=== PATIENT | female | born 1935 | race Caucasian/White ===

== ENCOUNTER → 2016-05-12 | Outpatient (CLI) | payer MEDICARE ==
--- NOTE | 2016-05-12 12:05 | US ---
EXAMINATION TYPE: US pelvic complete DATE OF EXAM: 05/12/2016 9:11 AM COMPARISON: NONE CLINICAL HISTORY: R10.0 Abd Pain, N20.0 Kidney Stones. UTI's, h/o hysterectomy and single oophorectom y TECHNIQUE: TA only pelvic ultrasound. Date of LMP: 30+yrs ago EXAM MEASUREMENTS: Uterus: N/A Endometrial Stripe: N/A Right Ovary: N/A Left Ovary: N/A TECHNOLOGIST IMPRESSION: 1. Uterus: surgically absent 2. Endometrium: surgically absent 3. Right Ovary: not seen do to atrophy or surgically absent 4. Left Ovary: not seen do to atrophy or surgically absent 5. Bilateral Adnexa: wnl 6. Posterior cul-de-sac: wnl Uterus is surgically absent. No free fluid is seen in pelvis. Visualized portion of bladder is unrema rkable. Neither ovary is clearly seen. One ovary is noted surgically absent. No suspicious adnexal masses are identified. IMPRESSION: No significant finding is seen to account for patient's symptoms.
--- NOTE | 2016-05-12 13:10 | US ---
EXAMINATION TYPE: US abdomen complete DATE OF EXAM: 05/12/2016 9:33 AM COMPARISON: NONE CLINICAL HISTORY: R10.0 Abd Pain, N20.0 Kidney Stones. No pain per patient, recent UTI's EXAM MEASUREMENTS: Liver Length: 13.8cm Gallbladder Wall: N/A CBD: 0.8cm Spleen: 7.7cm Right Kidney: 8.3 x 3.9 x 4.5cm Left Kidney: 9.5 x 4.2 x 5.3cm TECHNOLOGIST IMPRESSION: Pancreas: wnl Liver: 0.9cm lateral left lobe cyst seen, intercostal imaging appears wnl Gallbladder: Surgically absent CBD: wnl Spleen: 0.9cm calcification seen Right Kidney: smaller in size Left Kidney: wnl Upper IVC: wnl Abd Aorta: wnl The liver is homogenous. A 1 cm simple appearing thin-walled cyst left hepatic dome is noted. The in trahepatic portion of the IVC and visualized abdominal aorta are within normal limits. Gallbladder is surgically absent. Common bile duct is unremarkable. The visualized portions of the pancreas are ho mogenous. The spleen is unremarkable. 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 Kidneys are symmetric and free of hydronephrosis. No renal lesions are seen on images saved. IMPRESSION: No significant finding is seen to account for patient's symptoms.
== END | disposition home or self-care (01) ==
LOC: RADUSWWP 09:00
PROVIDERS: ATTEND Internal Medicine Geriatric Medicine
DX: N20.0 Calculus of kidney (principal); R10.9 Unspecified abdominal pain
CPT/HCPCS: 76700; 76857

== ENCOUNTER → 2016-05-24 | Outpatient (CLI) | payer MEDICARE ==
--- NOTE | 2016-05-24 08:38 | BD ---
EXAMINATION TYPE: MG DEXA axial skeleton. DATE OF EXAM: 05/24/2016 7:53 AM COMPARISON: 12.27.2012 CLINICAL HISTORY: m79.0 known OSTEOPOROSIS Height: 59.5 Weight: 114 FRAX RISK QUESTIONS: Alcohol (3 or more units per day): NO Family History (Parent hip fracture): NO Glucocorticoids (More than 3mos): YES (Ex: prednisone, prednisolone, methylprednisolone, dexamethasone, and hydrocortisone). History of Fracture in Adulthood: YES Secondary Osteoporosis: NO 1. Type 1 Diabetes: NO 2. Hyperthyroidism: NO 3. Menopause before 45: YES 4. Malnutrition: NO 5. Chronic liver disease: NO Rheumatoid Arthritis: NO, OSTEO Current Tobacco Use: NO RISK FACTORS HISTORY OF: Hip Fracture RT HIP, 2016, AND PELVIS When: LAST YR History of Wrist Fracture: BOTH WRISTS When: >48 Surgery to Spine RT HIP...TOTAL HIP REPLACEMENT When: 2016 Other Fractures since Age 48: NOTHING OTHER THAN ABOVE STATED Family History of Osteoporosis: NONE KNOWN Smoke tobacco: NO Drink Alcohol: SOCIAL Active: BEST SHE CAN Diet low in dairy products/other sources of calcium: NO Postmenopausal woman: HYST AT AGE 38 YRS Lost more than 2 inches in height since high school: YES Frequent falls: FELL LAST YR IN THE HOSPITAL, [facility] Adrenal Insufficiency: NO MEDICATIONS: Prednisone or other steroids: PRO AIR NEEDED FOR ASTHMA, AND JUDI. NASAL SPRAY How Long: FOR YRS Osteoporosis Medications: PROLIA How Long: FOR YEARS Additional Medications: CALCIUM, VIT D, BP MEDS X2, Additional History: GI PROBLEMS, COLOSTOMY, SURGICAL COMPLICATIONS, BLOOD COTS EXAM MEASUREMENTS: Bone mineral densitometry was performed using the [employer] System. Bone mineral density as measured about the Lumbar spine is: ----- L1-L4(G/cm2): 1.242 T Score Values are as follows: ----- L1: -1.6 ----- L2: -0.7 ----- L3: 0.7 ----- L4: 3.0 ----- L1-L4: 0.5 Bone mineral density has: Increased 21.4% since study of: 12.27.2012 Bone mineral density about the L hip (g/cm2): 0.782 T Score values are as follows: -----L Neck: -2.2 -----L Intertrochanter: -1.7 Bone mineral density has: Decreased -3.2% since study of: 12.27.2012 FRAX %'S: 22.7% FOR MAJOR OSTEOPOROTIC FX.....AND 7.3% FOR A HIP FX: PROBABILITY OF FX I N 10 YRS TIME IMPRESSION: Osteopenia (T Score between -2.5 and -1 as noted by T score values There is slightly increased risk of fracture and the patient may be considered for treatment. Re-Screen 1-2 years. FOR HER LT HIP AND L1 ONLY OF SPINE NOTE: T-SCORE=SD OF THE YOUNG ADULT MEAN.
== END | disposition home or self-care (01) ==
LOC: RADBDWWP 07:15
PROVIDERS: ATTEND Internal Medicine Geriatric Medicine
DX: M85.852 Other specified disorders of bone density and structure, left thigh (principal); M85.88 Other specified disorders of bone density and structure, other site
CPT/HCPCS: 77080

== ENCOUNTER → 2016-09-10 | Outpatient (CLI) | payer MEDICARE ==
[~2016-09-10] MED LIST: DENOSUMAB 60 MG/ML 1 ML SYRINGE SQ ONE
[2016-09-10 13:27] VITALS: BP 188/79; PULSE 56; RESP 18; TEMP 97.5
== END | disposition home or self-care (01) ==
LOC: PROCWHC3 12:54
PROVIDERS: ATTEND Internal Medicine Geriatric Medicine
DX: M81.0 Age-related osteoporosis without current pathological fracture (principal)
CPT/HCPCS: 96372; J0897

== ENCOUNTER → 2017-03-18 | Outpatient (CLI) | payer MEDICARE | END | disposition home or self-care (01) | LOC: PROCWHC3 10:00 | PROVIDERS: ATTEND Internal Medicine Geriatric Medicine | DX: M81.0 Age-related osteoporosis without current pathological fracture (principal) | CPT/HCPCS: 96372 ==

== ENCOUNTER → 2017-08-15 | Outpatient (CLI) | payer MEDICARE ==
--- NOTE | 2017-08-15 16:42 | CT ---
EXAMINATION TYPE: CT facial bones wo con DATE OF EXAM: 08/15/2017 COMPARISON: NONE HISTORY: Facial pain and pressure and hoarseness CT DLP: 587.[address] of the paranasal sinuses was performed in the axial and coronal planes. Bone and soft tissue settings are submitted. The paranasal sinuses demonstrate normal aeration and development. Postoperative changes of partial b ilateral ethmoidectomy and medial maxillary antrectomy. The paranasal sinuses are free of mucosal thickening or air fluid level. The osteal meatal units are patent bilaterally. The nasal septum is midline. No bony destructive changes are seen within the field of view. IMPRESSION: Postoperative changes as noted. No evidence for acute or chronic sinusitis at this time.
== END | disposition home or self-care (01) ==
LOC: RADCTMAIN 16:13
PROVIDERS: ATTEND Internal Medicine Geriatric Medicine
DX: J01.00 Acute maxillary sinusitis, unspecified (principal); Z98.890 Other specified postprocedural states
CPT/HCPCS: 70486

== ENCOUNTER → 2017-08-24 | Outpatient (CLI) | payer MEDICARE ==
--- NOTE | 2017-08-24 14:53 | XR ---
EXAMINATION TYPE: XR chest 2V DATE OF EXAM: 08/24/2017 COMPARISON: NONE INDICATION: Cough TECHNIQUE: Frontal and lateral views of the chest are obtained. FINDINGS: The heart size is normal. The pulmonary vasculature is normal. Some minimal increased linear markings are within the right upper lobe at the periphery.. IMPRESSION: 1. Suggestion of minimal atelectasis or infiltrate in the right upper lobe.
== END | disposition home or self-care (01) ==
LOC: RADXRMAIN 11:46
PROVIDERS: ATTEND Otolaryngology
DX: R05 Cough (principal)
CPT/HCPCS: 71046

== ENCOUNTER 2017-12-22 10:10 | Day surgery (SDC) | payer MEDICARE ==
[2017-12-20 11:49] VITALS: BMI 22.4
[~2017-12-22 10:10] MED LIST changes: +ALBUTEROL NEB (CONC) 2.5 MG/0.5 ML INHALATION ONE; -DENOSUMAB 60 MG/ML 1 ML SYRINGE SQ ONE; +LACTATED RINGERS 1,000 ML IV ONE; +LACTATED RINGERS 1,000 ML IV SCH; +LIDOCAINE 2% (PF) 20 MG/ML 2 ML AMP INHALATION ONE; +LIDOCAINE VISCOUS 300 MG/15 ML CUP MUCOUS MEM NR
[2017-12-22 10:29] VITALS: TEMP 98.2
[2017-12-22] MEDS ORDERED: LIDOCAINE 1% 20 ML VIAL (10MG/ML) FOR IV START INTRADERMA ONE (10:42)
[2017-12-22] MEDS ORDERED: PROPOFOL 10 MG/ML 20 ML VIAL IV ONE (11:30)
[2017-12-22] MEDS ORDERED: GLYCOPYRROLATE 0.2 MG/ML 2 ML VIAL ONE (11:30)
[2017-12-22] MEDS ORDERED: MIDAZOLAM 2 MG/2 ML VIAL ONE (11:30)
[2017-12-22] MEDS ORDERED: LIDOCAINE 1% INJ 10MG/ML (20 ML MDV) ONE (11:30)
[2017-12-22] MEDS ORDERED: KETAMINE 10 MG/ML 20 ML VIAL ONE (11:30)
[2017-12-22] MEDS ORDERED: LIDOCAINE 2% (PF) 20 MG/ML 2 ML VIAL INHALATION ONE (11:38)
--- NOTE | 2017-12-22 12:06 | PCN ---
PROCEDURE NOTE PROCEDURE: Bronchoscopy airway examination, therapeutic lavage, BAL right middle lobe. PREOPERATIVE DIAGNOSIS: Chronic cough and asthmatic bronchitis. POSTOPERATIVE DIAGNOSIS: Chronic cough and asthmatic bronchitis. OPERATORS: Dr. Bentley and Dr. Ventura. There was informed consent. There was universal timeout. EPIC BEACON ANALYST provided the unconscious sedation and general anesthesia. After the patient was adequately sedated and being fully monitored, the bronchoscope was inserted through the right nostril. It passed through the right nasopharynx into the oropharynx. The hypopharynx was identified. The hypopharyngeal areas looked erythematous to me. There was no mass or lesion. There was no secretions. The vocal cords appeared normal themselves. The anterior commissure, true cords, false cords, arytenoids, piriform sinuses, vallecula, right and left and epiglottis all appeared relatively normal save for the fact that there was some erythema of these structures. Again, no mass or tumor. After topicalization, bronchoscope was pushed through the glottic opening into the trachea. The trachea was a bit collapsible. The trachea was a little friable and mucosa was erythematous and hyperemic. There were some secretions noted throughout the collapsible trachea. Tracheal jennifer was sharp. The left side including the left upper lobe proper and its two segments, the lingula and its two segments and the left lower lobe and its four segments. They all had similar findings of diffuse bronchitis with erythema and hyperemia of the airways. There was some mucosal friability. The patient did bleed easily. There were thick yellow secretions noted throughout. There was no dominant mass or tumor. Similar findings were on the right side. The right upper lobe and its three segments, the right middle lobe and its two segments, the right lower lobe and its five segments all had similar findings as to the left side. Again, no dominant mass or tumor. Thick secretions were noted throughout. They were suctioned without difficulty with the aid of saline. Next, the bronchoscope was wedged into the right middle lobe. The BAL took place. The patient tolerated the procedure well. There was no immediate complication. Afterwards, additional secretions were removed. Once completed, the bronchoscope was withdrawn. There was no immediate complications. SPECIMENS: Sent to the laboratory for analysis. MMODL / IJN: [id number] /
[2017-12-22 12:16] VITALS: BP 159/74
[2017-12-22 13:00] VITALS: PULSE 88; RESP 18
[2017-12-22 17:39] LABS: Appearance,BF Clear; Color,BF Colorless; Nucleated Cells, Body Fluid 40 /uL; RBC, Body Fluid 495 /uL
[2017-12-22 17:46] LABS: Mononuclear WBC,Body Fluid 19 %; Polynuclear WBC,Body Fluid 80 %; Total Cells Counted,Body Fluid 100
== END 2017-12-22 13:13 | disposition home or self-care (01) ==
LOC: ORWHC2ENDO 10:10
PROVIDERS: ATTEND Internal Medicine Critical Care Medicine
DX: J44.9 Chronic obstructive pulmonary disease, unspecified (principal); J32.9 Chronic sinusitis, unspecified; M19.90 Unspecified osteoarthritis, unspecified site; I10 Essential (primary) hypertension; K21.9 Gastro-esophageal reflux disease without esophagitis; Z96.659 Presence of unspecified artificial knee joint; Z79.51 Long term (current) use of inhaled steroids; Z79.899 Other long term (current) drug therapy; Z90.710 Acquired absence of both cervix and uterus; Z87.891 Personal history of nicotine dependence; Z86.73 Personal history of transient ischemic attack (TIA), and cerebral infarction without residual deficits
CPT/HCPCS: 94640; 87798 ×3; 87496; 87498; 87529 ×2; 88108; 88305; 89050; 87252; 87502; 87634; 87070; 87205; 87116; 87102; 87206; 31624; J2250; J2001 ×3; J2704

== ENCOUNTER → 2018-02-13 | Outpatient (CLI) | payer MEDICARE ==
--- NOTE | 2018-02-13 12:08 | FL ---
Modified barium swallow. HISTORY: Dysphagia. Modified barium swallow was performed with the department of speech pathology. The patient was prese nted with various consistencies of barium. There is no evidence for aspiration or penetration. Full report is to follow from the department of speech pathology. Impression: Normal study.
== END ==
LOC: RADFLMAIN 10:54
PROVIDERS: ATTEND Internal Medicine Geriatric Medicine
DX: Q40.1 Congenital hiatus hernia (principal)
CPT/HCPCS: 74230

== ENCOUNTER 2018-03-08 09:44 | Day surgery (SDC) | payer MEDICARE ==
[2018-03-06 09:42] VITALS: BMI 22.2
[~2018-03-08 09:44] MED LIST changes: -ALBUTEROL NEB (CONC) 2.5 MG/0.5 ML INHALATION ONE; -LACTATED RINGERS 1,000 ML IV ONE; +LIDOCAINE 1% 20 ML VIAL (10MG/ML) FOR IV START INTRADERMA PRN; -LIDOCAINE 2% (PF) 20 MG/ML 2 ML AMP INHALATION ONE; -LIDOCAINE VISCOUS 300 MG/15 ML CUP MUCOUS MEM NR
[2018-03-08 11:46] VITALS: TEMP 97.8
[2018-03-08] MEDS ORDERED: PROPOFOL 10 MG/ML 20 ML VIAL IV ONE (12:14)
--- NOTE | 2018-03-08 12:23 | P.PCN ---
Date of Procedure: 03/08/18 Procedure(s) Performed: BRIEF HISTORY: Patient is a 82-year-old, pleasant, male, scheduled for an upper endoscopy as a part of evaluation of epigastric pain for the last several months duration.. PROCEDURE PERFORMED: Esophagogastroduodenoscopy with biopsy. PREOPERATIVE DIAGNOSIS: Chronic epigastric pain. IV sedation per anesthesia. PROCEDURE: After informed consent was obtained, the patient was brought into the endoscopy unit. IV sedation was administered by Anesthesia under continuous monitoring. Initially the Olympus GIF-140 video endoscope was inserted into the mouth. Esophagus intubated without any difficulty. It was gradually advanced into the stomach and duodenum and carefully examined. The bulb and the second part of the duodenum appeared normal. The scope at this time was withdrawn to the stomach, adequately insufflated with air, and upon careful examination, mucosa of the antrum had linear erosions in the antrum consistent with erosive gastritis and biopsies were done from this area. The body, cardia and the fundus appeared normal. The scope was then withdrawn into the esophagus. The GE junction was located at 39 cm from the incisors. Small sliding Hiatal hernia noted. The esophagus appeared normal. There were no erosions or ulcerations seen. Biopsies were done from the distal esophagus and the patient tolerated the procedure well. IMPRESSION: 1. Linear erosions in the antrum of the stomach consistent with erosive gastritis. 2. Small sliding Hiatal hernia. RECOMMENDATIONS: The findings of this examination were discussed with the patient as well as a family. She was advised to follow with the biopsy results. she was advised to avoid NSAIDs and continue current medications.
[2018-03-08 12:37] VITALS: RESP 20
[2018-03-08 12:50] VITALS: BP 140/76; PULSE 84
== END 2018-03-08 13:03 | disposition home or self-care (01) ==
LOC: ORWHC2ENDO 09:44
PROVIDERS: ATTEND Internal Medicine Gastroenterology
DX: K29.50 Unspecified chronic gastritis without bleeding (principal); K44.9 Diaphragmatic hernia without obstruction or gangrene; G89.29 Other chronic pain; I10 Essential (primary) hypertension; J45.909 Unspecified asthma, uncomplicated; R32 Unspecified urinary incontinence; M19.90 Unspecified osteoarthritis, unspecified site; H35.30 Unspecified macular degeneration; K57.92 Diverticulitis of intestine, part unspecified, without perforation or abscess without bleeding; D64.9 Anemia, unspecified; Z79.51 Long term (current) use of inhaled steroids; Z79.899 Other long term (current) drug therapy; Z91.048 Other nonmedicinal substance allergy status; Z86.73 Personal history of transient ischemic attack (TIA), and cerebral infarction without residual deficits
CPT/HCPCS: 88305; 43239; J2704

== ENCOUNTER → 2018-07-20 | Outpatient (CLI) | payer MEDICARE ==
--- NOTE | 2018-07-21 09:06 | XR ---
EXAMINATION TYPE: XR chest 2V DATE OF EXAM: 07/20/2018 COMPARISON: 08/24/2017 INDICATION: Short of breath, cough TECHNIQUE: Frontal and lateral views of the chest are obtained. FINDINGS: The heart size is normal. The pulmonary vasculature is normal. The lungs are clear. There is some elevation which appears chronic of the right diaphragm. Some mild chronic changes in the periphery of the right upper lobe remain present. IMPRESSION: 1. No acute pulmonary process.
== END | disposition home or self-care (01) ==
LOC: RADXRMAIN 16:11
PROVIDERS: ATTEND Internal Medicine Clinical Cardiac Electrophysiology
DX: R06.02 Shortness of breath (principal); R05 Cough
CPT/HCPCS: 71046

== ENCOUNTER 2018-07-27 08:06 | Day surgery (SDC) | payer MEDICARE ==
[2018-07-25 11:11] VITALS: BMI 21.9
[~2018-07-27 08:06] MED LIST changes: +ALPRAZolam 0.25 MG TAB PO PRN; +ALPRAZolam 0.5 MG TAB PO PRN; +ASPIRIN 325 MG TAB PO ONE; +ATORVASTATIN 80 MG TAB PO ONE; -LACTATED RINGERS 1,000 ML IV SCH; -LIDOCAINE 1% 20 ML VIAL (10MG/ML) FOR IV START INTRADERMA PRN; +NITROGLYCERIN SL TABS 0.4 MG TAB SUBLINGUAL PRN; +SODIUM CHLORIDE 0.9% 1,000 ML in EMPTY BAG 1 BAG IV ONE
[2018-07-27 09:03] LABS: Basophils # (A) 0.1 k/uL (0-0.2); Basophils % (A) 1 %; Eosinophils # (A) 0.2 k/uL (0-0.7); Eosinophils % (A) 2 %; HCT 38.5 % (34.0-46.0); HGB 12.7 gm/dL (11.4-16.0); Lymphocytes # (A) 1.5 k/uL (1.0-4.8); Lymphocytes % (A) 13 %; MCH 30.6 pg (25.0-35.0); MCHC 33.1 g/dL (31.0-37.0); MCV 92.4 fL (80.0-100.0); Mean Platelet Volume 7.9; Monocytes % (A) 9 %; Neutrophils # (A) 8.3 k/uL (1.3-7.7); Neutrophils % (A) 73 %; Platelet Count 316 k/uL (150-450); RBC 4.16 m/uL (3.80-5.40); RDW 15.7 % (11.5-15.5); WBC 11.3 k/uL (3.8-10.6)
[2018-07-27] MEDS ORDERED: MIDAZOLAM (PF) 2 MG/2 ML VIAL IV ONE (12:38)
[2018-07-27] MEDS ORDERED: fentaNYL (PF) 50 MCG/ML 2 ML AMP IV ONE (12:38)
[2018-07-27] MEDS ORDERED: LIDOCAINE 1% INJ 10MG/ML (20 ML MDV) SQ ONE (12:39)
[2018-07-27] MEDS ORDERED: IOPAMIDOL-370 125ML BTL INJ ONE ×2 (12:52)
[2018-07-27] MEDS ORDERED: RX INFO: IV CONTRAST WAS GIVEN 1 EACH MISC MISCELLANE PRN (13:05)
[2018-07-27] MEDS: SODIUM CHLORIDE 0.9% 1,000 ML IV SCH (13:20)
[2018-07-27] MEDS ORDERED: ACETAMINOPHEN TAB 325 MG TAB PO PRN (16:42)
[2018-07-27] MEDS: hydrALAZINE HCL 50 MG TAB PO SCH (20:14)
[2018-07-27] MEDS ORDERED: METOPROLOL TARTRATE 50 MG TAB PO SCH (21:00)
[2018-07-27] MEDS ORDERED: LOSARTAN 25 MG TAB PO SCH (21:00)
[2018-07-27] MEDS ORDERED: ATORVASTATIN 20 MG TAB PO SCH (21:00)
[2018-07-27] MEDS ORDERED: ALPRAZolam 0.25 MG TAB PO SCH (21:00)
--- NOTE | 2018-07-27 21:34 | CC ---
CARDIAC CATHETERIZATION REPORT Mrs. Dee is an 83-year-old female who has been having some intermittent chest pressure and exertional shortness of breath with minimal activities. The patient's echocardiogram reveals normal left ventricular systolic function. The patient has a stage 3 chronic kidney disease. After fully explaining the potential benefits and risks, the patient was advised further evaluation with a cardiac catheterization to rule out any underlying significant coronary artery disease. DESCRIPTION OF PROCEDURE: The right groin was prepped and draped in the usual manner and the right femoral artery was entered using a micropuncture needle under ultrasound guidance and a #6-Australian sheath was placed in. Selective coronary angiography was then performed in multiple projections and the left ventricular pressures were obtained. Sheath was removed and good hemostasis was achieved with the use of Angio-Seal. The total contrast dye was 70 mL. Moderate sedation was used. Sedation time was 19 minutes. SELECTIVE CORONARY ANGIOGRAPHY: Left main coronary artery is normal and patent. LAD is a good caliber blood vessel and gives rise to a good size diagonal branch. The mid LAD after the origin of diagonal branch has mild atherosclerotic plaque with about 30% stenosis. Circumflex coronary artery is nondominant and is small. Right coronary artery is dominant in distribution, gives rise to good-sized PDA and PLV branch. Right coronary artery has a mild atheromatous abnormality without any obstructive disease. FINAL IMPRESSION: This study reveals mild nonobstructive coronary artery disease. Left ventricular end- diastolic pressure is 12-14 mmHg. RECOMMENDATIONS: Medical treatment. MMODL / IJN: [id number] /
[2018-07-27] MEDS: SYMBICORT 160-4.5 MCG INHALER INHALATION SCH (22:04)
[2018-07-28] MEDS: SODIUM CHLORIDE 0.9% 1,000 ML IV SCH (02:40)
[2018-07-28 06:55] LABS: Calcium 8.7 mg/dL (8.4-10.2); Potassium 3.4 mmol/L (3.5-5.1)
[2018-07-28] MEDS: SYMBICORT 160-4.5 MCG INHALER INHALATION SCH (07:44)
[2018-07-28] MEDS: hydrALAZINE HCL 50 MG TAB PO SCH (08:29)
[2018-07-28] MEDS ORDERED: FUROSEMIDE 40 MG TAB PO SCH (09:00)
[2018-07-28] MEDS ORDERED: CHLORTHALIDONE 25 MG TAB PO SCH (09:00)
[2018-07-28] MEDS ORDERED: DONEPEZIL 5 MG TAB PO SCH (09:00)
[2018-07-28] MEDS ORDERED: CITALOPRAM HYDROBROMIDE 10 MG TAB PO SCH (09:00)
[2018-07-28] MEDS ORDERED: amLODIPine 10 MG TAB PO SCH (09:00)
[2018-07-28] MEDS ORDERED: CALCIUM CARB-VIT D 500MG-200UN 1 EACH TAB PO SCH (09:00)
[2018-07-28] MEDS ORDERED: CHOLECALCIFEROL 1,000 UNIT TAB PO SCH (09:00)
[2018-07-28] MEDS ORDERED: ASPIRIN 81 MG PO SCH (09:00)
[2018-07-28 09:09] VITALS: BP 136/66; PULSE 57; RESP 16; TEMP 97.7
--- NOTE | 2018-07-28 11:19 | P.DS ---
Providers Attending physician: Kalyan Reynolds Primary care physician: [facility] Course: This is a pleasant 83-year-old female who is brought in electively for outpatient cardiac catheterization secondary to intermittent chest pressure and exertional shortness of breath. She underwent cardiac catheterization via the right femoral artery yesterday with Dr. Reynolds revealing mild nonobstructive coronary artery disease with an LVEDP of 12-14 mmHg. She was kept overnight on the observation unit for hydration. She denies chest pain, or shortness of breath overnight. Repeat laboratory data this morning reviewed, sodium 140, potassium 3.4, creatinine 1.11. Blood pressure 136/66 heart rate 57 afebrile maintaining oxygen saturation on room air. Hemodynamically stable for discharge home today. Follow-up in the office with Dr. Weinberg in one to 2 weeks. The office will call with appointment time. She has been advised to discontinue metoprolol and Imdur and continue all other medications as previously ordered. GENERAL: Well-appearing, well-nourished and in no acute distress. NECK: Supple without JVD or thyromegaly. LUNGS: Breath sounds clear to auscultation bilaterally. Respiration equal and unlabored. No wheezes, rales or rhonchi. HEART: Regular rate and rhythm without murmurs, rubs or gallops. S1 and S2 heard. EXTREMITIES: Normal range of motion, no edema. No clubbing or cyanosis. Peripheral pulses intact. Right groin is soft, nontender, no bleeding and no hematoma noted. Distal pulses strong and intact. ASSESSMENT Chest discomfort suggestive of angina. Catheterization with no evidence of obstructive CAD Hypertension Dyslipidemia PLAN Stable for discharge from a cardiac perspective. Discontinue lopressor and imdur. Follow up in the office with Dr. Hoover, the office will call you with appointment day and time. Nurse Practitioner note has been reviewed, I agree with a documented findings and plan of care. Patient was seen and examined. Patient Condition at Discharge: Stable Plan - Discharge Summary Discharge Rx Participant: Yes New Discharge Prescriptions: Continue amLODIPine BESYLATE [Amlodipine Besylate] 10 mg PO DAILY Donepezil [Aricept] 5 mg PO DAILY Cholecalciferol [Vitamin D3 (25 Mcg = 1000 Iu)] 1,000 unit PO DAILY Citalopram Hydrobromide [CeleXA] 10 mg PO DAILY ALPRAZolam [Xanax] 0.25 mg PO HS Propylene Glycol/Peg 400/Pf [Systane 0.3-0.4% Eye Drops] 1 dropper BOTH EYES DIRECTED PRN PRN Reason: Dry Eye(S) Budesonide-Formot 160-4.5 Mcg [Symbicort 160-4.5 Mcg Inhaler] 2 puff INHALATION BID Vit C/E/Zn/Coppr/Lutein/Zeaxan [Preservision Areds 2 Softgel] 1 each PO BID Carlos/D3/Mag11/Zinc/Gliding Pilot Instructor/Nigel/Bor [Caltrate 600+D Plus Tablet] 1 each PO DAILY hydrALAZINE HCL [Apresoline] 100 mg PO BID Chlorthalidone 25 mg PO DAILY Losartan Potassium [Cozaar] 25 mg PO HS Furosemide [Lasix] 40 mg PO DAILY Atorvastatin [Lipitor] 20 mg PO HS Aspirin 81 mg PO DAILY Discontinued Metoprolol Tartrate [Lopressor] 50 mg PO BID Discharge Medication List Cholecalciferol [Vitamin D3 (25 Mcg = 1000 Iu)] 1,000 unit PO DAILY 03/11/14 [ History] Donepezil [Aricept] 5 mg PO DAILY 03/11/14 [History] amLODIPine BESYLATE [Amlodipine Besylate] 10 mg PO DAILY 03/11/14 [History] ALPRAZolam [Xanax] 0.25 mg PO HS 09/10/16 [History] Citalopram Hydrobromide [CeleXA] 10 mg PO DAILY 09/10/16 [History] Propylene Glycol/Peg 400/Pf [Systane 0.3-0.4% Eye Drops] 1 dropper BOTH EYES DIRECTED PRN 09/10/16 [History] Budesonide-Formot 160-4.5 Mcg [Symbicort 160-4.5 Mcg Inhaler] 2 puff INHALATION BID 12/20/17 [History] Carlos/D3/Mag11/Zinc/Gliding Pilot Instructor/Nigel/Bor [Caltrate 600+D Plus Tablet] 1 each PO DAILY 12/20/17 [History] Vit C/E/Zn/Coppr/Lutein/Zeaxan [Preservision Areds 2 Softgel] 1 each PO BID 12/20/17 [History] Chlorthalidone 25 mg PO DAILY 03/06/18 [History] Losartan Potassium [Cozaar] 25 mg PO HS 03/06/18 [History] hydrALAZINE HCL [Apresoline] 100 mg PO BID 03/06/18 [History] Aspirin 81 mg PO DAILY 07/25/18 [History] Atorvastatin [Lipitor] 20 mg PO HS 07/25/18 [History] Furosemide [Lasix] 40 mg PO DAILY 07/25/18 [History] Follow up Appointment(s)/Referral(s): Abdelrahman Hoover MD [STAFF PHYSICIAN] - 2 Weeks (Follow-up with Tamiko Tejeda/Dr. Weinberg. office will call with appointment. Stop metoprolol. No Imdur. Continue all other medications including atorvastatin and aspirin and all her antihypertensive therapies from before. ) Patient Instructions/Handouts: *Surgery [facility] - After Heart Catheterization - [facility] Instructions Discharge Disposition: HOME SELF-CARE
== END 2018-07-28 12:05 | disposition home or self-care (01) ==
LOC: CATHCVL 08:06 → 1SOBS 12:54 → CATHCVL 07-28 12:05
PROVIDERS: ATTEND Internal Medicine Cardiovascular Disease
DX: I25.118 Atherosclerotic heart disease of native coronary artery with other forms of angina pectoris (principal); I10 Essential (primary) hypertension; Z87.891 Personal history of nicotine dependence; E78.5 Hyperlipidemia, unspecified; Z79.82 Long term (current) use of aspirin; Z79.51 Long term (current) use of inhaled steroids; Z79.899 Other long term (current) drug therapy
CPT/HCPCS: 94640 ×3; 93458; 80048; 85025; C1760; C1894; C1769 ×2; J2001; J3010; Q9967; J2250

== ENCOUNTER → 2018-09-05 | Outpatient (CLI) | payer MEDICARE ==
--- NOTE | 2018-09-05 13:59 | BD ---
EXAMINATION TYPE: Axial Bone Density DATE OF EXAM: 09/05/2018 COMPARISON: 05/24/2016 CLINICAL HISTORY: M 79.0 Height: 60 Weight: 118.2 FRAX RISK QUESTIONS: Alcohol (3 or more units per day): no Family History (Parent hip fracture): no Glucocorticoids (More than 3mos): no (Ex: prednisone, prednisolone, methylprednisolone, dexamethasone, and hydrocortisone). History of Fracture in Adulthood: yes Secondary Osteoporosis: 1. Type 1 Diabetes: no 2. Hyperthyroidism: no 3. Menopause before 45: yes 4. Malnutrition: no 5. Chronic liver disease: no Rheumatoid Arthritis: no Current Tobacco Use: no RISK FACTORS HISTORY OF: Hip Fracture (Right/Left): right hip When: 4 years ago History of Wrist Fracture: right 5 years ago/ left wrist apr 2018 Surgery to Spine/Hip(right/left)/Wrist (right/left): bilateral wrist/ right hip Family History of Osteoporosis: no Active: yes Diet low in dairy products/other sources of calcium: yes Postmenopausal woman: hysterectomy age 38 Lost more than 2 inches in height since high school: 1 1/2 inches MEDICATIONS: blood pressure, statins, Additional History: EXAM MEASUREMENTS: Bone mineral densitometry was performed using the [employer] System. Bone mineral density as measured about the Lumbar spine is: ----- L1-L4(G/cm2): 1.133 T Score Values are as follows: ----- L2: -1.3 ----- L3: -0.3 ----- L4: 1.0 ----- L1-L4: -0.4 Bone mineral density has: decreased -10.9 % since study of: 05.24.2016 Bone mineral density about the L hip (g/cm2): 0.714 T Score values are as follows: -----L Neck: -2.3 -----L Total: -2.1 Bone mineral density has: decreased -5.2 % since study of: 05.24.2016 IMPRESSION: Osteopenia (T Score between -2.5 and -1) with regards to the left hip. There is slightly increased risk of fracture and the patient may be considered for treatment. Re-Screen 2-5 years. NOTE: T-SCORE=SD OF THE YOUNG ADULT MEAN.
== END | disposition home or self-care (01) ==
LOC: RADBDWWP 10:40
PROVIDERS: ATTEND Internal Medicine Geriatric Medicine
DX: M85.852 Other specified disorders of bone density and structure, left thigh (principal); M81.0 Age-related osteoporosis without current pathological fracture
CPT/HCPCS: 77080

== ENCOUNTER → 2018-11-15 | Outpatient (CLI) | payer MEDICARE ==
--- NOTE | 2018-11-15 15:51 | CT ---
EXAMINATION TYPE: CT abdomen pelvis wo con DATE OF EXAM: 11/15/2018 COMPARISON: None HISTORY: abdominal pain CT DLP: 230.6 mGycm Examination of the solid and hollow viscera is limited given the lack of contrast. FINDINGS: LUNG BASES: No evidence for nodule. No evidence for infiltrate. LIVER/GB: The gallbladder is surgically absent. No space-occupying hepatic lesion. PANCREAS: No pancreatic mass identified. No inflammatory process seen. SPLEEN: No evidence for splenomegaly. No intrasplenic lesions seen. ADRENALS: No adrenal nodules identified. No evidence for thickening. KIDNEYS: No evidence for renal mass. Bilateral nephrolithiasis. No hydronephrosis. BOWEL: Appendix has a normal appearance. No evidence of bowel obstruction. No inflammatory process. Lymph nodes: No evidence for adenopathy greater than 1 cm. Abdominal aorta: Atheromatous changes seen. No evidence for aneurysm. Genital organs: No significant abnormality. Other: No significant abnormality. IMPRESSION: 1. Nonobstructive nephrolithiasis.
== END | disposition home or self-care (01) ==
LOC: RADCTMAIN 13:24
PROVIDERS: ATTEND Internal Medicine Geriatric Medicine
DX: N20.0 Calculus of kidney (principal)
CPT/HCPCS: 74176

== ENCOUNTER → 2018-12-13 | Outpatient (CLI) | payer MEDICARE ==
[~2018-12-13] MED LIST changes: -ALPRAZolam 0.25 MG TAB PO PRN; -ALPRAZolam 0.5 MG TAB PO PRN; -ASPIRIN 325 MG TAB PO ONE; -ATORVASTATIN 80 MG TAB PO ONE; +DENOSUMAB 60 MG/ML 1 ML SYRINGE SQ NR; -NITROGLYCERIN SL TABS 0.4 MG TAB SUBLINGUAL PRN; -SODIUM CHLORIDE 0.9% 1,000 ML in EMPTY BAG 1 BAG IV ONE
[2018-12-13 11:13] VITALS: BP 191/79; PULSE 65; RESP 16; TEMP 98.3
== END | disposition home or self-care (01) ==
LOC: PROCWHC3 10:55
PROVIDERS: ATTEND Internal Medicine Geriatric Medicine
DX: M81.0 Age-related osteoporosis without current pathological fracture (principal)
CPT/HCPCS: 96372; J0897

== ENCOUNTER → 2018-12-26 | Outpatient (CLI) | payer MEDICARE ==
--- NOTE | 2018-12-26 11:59 | XR ---
EXAMINATION TYPE: XR ribs LT w pa chest xray DATE OF EXAM: 12/26/2018 COMPARISON: 07/20/2018 HISTORY: Fall lateral lower rib pain TECHNIQUE: Left ribs are examined in 2 projections and supplemented with a frontal chest. FINDINGS: There is a lateral ninth rib fracture present. 10th rib fracture is evident on the oblique view. 11th rib may have a fracture but is not as clearly identified. Small pleural fluid collection i s present. Pleural effusion or hemothorax could be considered. IMPRESSION: 1. 9, 10 and 11th ribs fractures lateral left ribs. 2. No pneumothorax. 3. Fluid collection can be related to pleural effusion or hemothorax. A Yellow level critical message alert has been initiated for Ward Fraga MD via the [employer] Critical Results System on 12/26/2018 11:56 AM. This message alert has been sent to Ward Fraga MD vi a the preferences provided by the clinician for the receipt of Radiology Critical Findings. Message I D [id number].
== END | disposition home or self-care (01) ==
LOC: RADXRMAIN 11:19
PROVIDERS: ATTEND Internal Medicine Geriatric Medicine
DX: S22.42XA Multiple fractures of ribs, left side, initial encounter for closed fracture (principal)

== ENCOUNTER → 2019-10-02 | Outpatient (CLI) | payer MEDICARE ==
--- NOTE | 2019-10-03 11:37 | CT ---
EXAMINATION TYPE: CT abdomen pelvis w con DATE OF EXAM: 10/02/2019 COMPARISON: 11/15/2018 HISTORY: 84-year-old female Diverticulitis without abscess or bleeding TECHNIQUE: Contiguous axial scanning of the abdomen and pelvis following administration of 100 ml Iso jennifer 300 IV contrast. Delayed images through the kidneys and coronal/sagittal reconstructions perform ed. CT DLP: 376.6 mGycm Automated exposure control for dose reduction was used. FINDINGS: Mitral annular and coronary artery calcifications are present. Mild to moderate scattered a therosclerotic calcifications within the visualized thoracic aorta. Some interstitial scarring in the visualized lower lungs without pleural effusion. 1 cm indeterminate hypodense lesion left liver lobe is unchanged from prior suggesting a benign cyst. Status post cholecystectomy. Bile duct caliber of 1 cm normal distal tapering likely normal postchol ecystectomy change. Adrenal glands, left kidney, spleen, pancreas within normal limits. Redemonstrated extrarenal pelvis on the right. There may be minimal urothelial thickening among the v isualized upper third right ureter, for example, axial image 41. Some possible focal narrowing proxim al right ureter just beyond the UPJ, coronal image 38. Moderate atherosclerotic calcifications abdominal aorta and iliac arteries. No dilated small bowel, free fluid, or free air. No mesenteric or retroperitoneal lymphadenopathy. Oral contrast progressed to the rectum. There appears to be surgical material at the rectosigmoid corey ction from prior bowel resection and apparent end to side anastomosis. Some mild residual diverticular changes present here. No definite acute inflammation. No pelvic free fluid or evidence of pelvic lymphadenopathy. Low-lying cecum. Pelvic floor relaxation. Uterus surgically absent. Suspect visualization of a small right ovary. Left ovary not seen. There is a 2.7 cm left lateral bladder wall diverticulum redemonstrated. Mild to mod erate circumferential bladder wall thickening. Bones: Dynamic hip screw fixation on the right. Suture anchors along the pubic bones. Old left pubic rami fracture deformities. Moderate degenerative change in both hips. Vascular disease. Severe degene rative disc disease L3-L4 and L4-L5. Right paracentral disc protrusion at T10-T11. Transitional lumbo sacral segment with a sacralized L5. IMPRESSION: 1. PRIOR DISTAL COLON RESECTION WITH APPARENT END TO SIDE ANASTOMOSIS NEAR THE RECTOSIGMOID JUNCTION . SOME MILD RESIDUAL DIVERTICULAR CHANGES PRESENT HERE. NO CONVINCING EVIDENCE FOR ACUTE DIVERTICULIT IS. 2. MILD TO MODERATE CIRCUMFERENTIAL BLADDER WALL THICKENING. CORRELATE TO EXCLUDE CYSTITIS. REDEMONST RATED 2.7 CM LEFT LATERAL BLADDER WALL DIVERTICULUM. 3. THERE MAY BE SOME MILD UROTHELIAL THICKENING ALONG THE PROXIMAL THIRD RIGHT URETER THAT COULD RELA TE TO UTI. AGAIN, CLINICALLY CORRELATE. UNABLE TO EXCLUDE A FOCAL NONOBSTRUCTIVE STENOSIS ALONG THE P ROXIMAL RIGHT URETER JUST BELOW THE UPJ, CORONAL IMAGE 38.
== END | disposition home or self-care (01) ==
LOC: RADCTMAIN 13:08
PROVIDERS: ATTEND Internal Medicine Geriatric Medicine
DX: N32.3 Diverticulum of bladder (principal); K57.92 Diverticulitis of intestine, part unspecified, without perforation or abscess without bleeding; Z98.890 Other specified postprocedural states
CPT/HCPCS: 82565; 84520; 74177; 36415; Q9967

== ENCOUNTER → 2020-02-25 | Outpatient (CLI) | payer MEDICARE ==
[~2020-02-25] MED LIST changes: -DENOSUMAB 60 MG/ML 1 ML SYRINGE SQ NR; +DENOSUMAB 60 MG/ML 1 ML SYRINGE SQ ONE
[2020-02-25 13:13] VITALS: BP 172/69; PULSE 72; RESP 18; TEMP 97.9
== END | disposition home or self-care (01) ==
LOC: PROCWHC3 12:59
PROVIDERS: ATTEND Internal Medicine Geriatric Medicine
DX: M81.0 Age-related osteoporosis without current pathological fracture (principal)
CPT/HCPCS: 96372; J0897

== ENCOUNTER 2020-04-07 10:27 | Day surgery (SDC) | payer MEDICARE ==
[2020-04-01 11:41] VITALS: BMI 23.4
[~2020-04-07 10:27] MED LIST changes: -DENOSUMAB 60 MG/ML 1 ML SYRINGE SQ ONE; +LACTATED RINGERS 1,000 ML IV SCH; +SODIUM CHLORIDE 0.9% 1,000 ML IV SCH
[2020-04-07] MEDS ORDERED: SODIUM CHLORIDE 0.9% 500 ML 500 ML IV ONE (10:36)
[2020-04-07 10:53] VITALS: BP 185/102; PULSE 73; RESP 16; TEMP 98.4
[2020-04-07] MEDS ORDERED: LIDOCAINE 1% INJ 10MG/ML (20 ML MDV) ONE (12:38)
[2020-04-07] MEDS ORDERED: LIDOCAINE 1% INJ 10MG/ML (20 ML MDV) SQ ONE (12:47)
--- NOTE | 2020-04-07 13:35 | P.EPPROC ---
- EP Procedure Note Electrophysiology Procedure Note: Loop monitor implant Primary physicians: Accounting Recruiter: Dr. Hoover Indication: Recurrent palpitations Patient was brought to the EP lab in a fasting state. Written informed consent was obtained prior to the procedure. The left pectoral area was prepped and draped per protocol. Intravenous antibiotic was administered preoperatively. A subcutaneous Loop monitor was implanted successfully and the wound was closed per protocol. The device was programmed to detect significant frannie- arrhythmic and tachy-arrhythmic events, per protocol. Device and programming details: Programmed for detection of A. fib Patient underwent EP procedure under conscious sedation/moderate sedation, monit oring of the level of consciousness and physiologic parameters including but not limited to vital signs and oxygenation. Patient tolerated the procedure well without any acute complications. Start time: 1247 Stop time: 1254
--- NOTE | 2020-04-07 13:37 | P.PRLE ---
RE: Susy Dee Dear him on Susy underwent implantation of loop monitor for evaluation and management of recurrent palpitations despite beta blockers. No changes in medications at this time I will keep you posted if he detect any atrial fibrillation Thank you for entrusting me with the care of the patient Warm regards Sincerely Abdelrahman Hoover
== END 2020-04-07 13:32 | disposition home or self-care (01) ==
LOC: CATHEP 10:27
PROVIDERS: ATTEND Internal Medicine Clinical Cardiac Electrophysiology
DX: R00.2 Palpitations (principal); I49.5 Sick sinus syndrome; I08.0 Rheumatic disorders of both mitral and aortic valves; I47.2 Ventricular tachycardia; I47.1 Supraventricular tachycardia; I10 Essential (primary) hypertension; J44.9 Chronic obstructive pulmonary disease, unspecified; Z72.0 Tobacco use; Z79.82 Long term (current) use of aspirin; Z79.51 Long term (current) use of inhaled steroids; Z79.52 Long term (current) use of systemic steroids; Z79.899 Other long term (current) drug therapy
CPT/HCPCS: 33285; C1764; J0690; J2001

== ENCOUNTER → 2020-04-08 | Outpatient (CLI) | payer MEDICARE ==
[~2020-04-08] MED LIST changes: +FUROSEMIDE 10 MG/ML 2 ML VIAL IV ONE; -LACTATED RINGERS 1,000 ML IV SCH; -SODIUM CHLORIDE 0.9% 1,000 ML IV SCH
--- NOTE | 2020-04-09 12:41 | NM ---
EXAMINATION TYPE: NM lasix renogram DATE OF EXAM: 04/08/2020 COMPARISON: CT abdomen and pelvis October 02, 2019 HISTORY: Hydronephrosis unspecified. History of right ureter stent placed 3 months ago per patient. Following administration of 10.2 mCi Tc 99m MAG3 with 20mg Lasix. Immediate images post injection FINDINGS: Left: 44.7 %. Right: 55.3 %. Max renal flow left: 9 minutes. Max renal flow right: 7minutes. Satisfactory accumulation of radiotracer within both renal collecting systems. After the administrati on of Lasix, there is prompt excretion from both collecting systems. T 1/2 left: 29.5 minutes. T 1/2 right: 23.4 minutes. Dynamic arterial images show satisfactory blood flow to both kidneys with fairly symmetric cortical m edullary uptake and excretion identified. Slight asymmetric increased function to the right kidney ve rsus left kidney are within normal range. Normal excretion is present with satisfactory response afte r Lasix injection. IMPRESSION: As above. Bilateral function is thought within normal limits.
== END | disposition home or self-care (01) ==
LOC: RADNMMAIN 12:58
PROVIDERS: ATTEND Urology
DX: N13.30 Unspecified hydronephrosis (principal)
CPT/HCPCS: 78708; A9562

== ENCOUNTER → 2021-04-08 | Outpatient (CLI) | payer MEDICARE ==
[~2021-04-08] MED LIST changes: +DENOSUMAB 60 MG/ML 1 ML SYRINGE SQ NR; -FUROSEMIDE 10 MG/ML 2 ML VIAL IV ONE
[2021-04-08 13:55] VITALS: BP 160/69; PULSE 72; RESP 16; TEMP 97.8
== END ==
LOC: PROCWHC3 13:28
PROVIDERS: ATTEND Nurse Practitioner Gerontology
DX: M81.0 Age-related osteoporosis without current pathological fracture (principal); Z87.891 Personal history of nicotine dependence; Z91.09 Other allergy status, other than to drugs and biological substances
CPT/HCPCS: 96372; J0897

== ENCOUNTER → 2021-10-09 | Outpatient (CLI) | payer MEDICARE ==
[2021-10-09 13:21] VITALS: BP 162/61; PULSE 96; RESP 15; TEMP 98.2
== END ==
LOC: PROCWHC3 13:04
PROVIDERS: ATTEND Nurse Practitioner Gerontology
DX: M81.0 Age-related osteoporosis without current pathological fracture (principal); Z91.09 Other allergy status, other than to drugs and biological substances; Z87.891 Personal history of nicotine dependence
CPT/HCPCS: 96372; J0897

== ENCOUNTER 2022-03-30 17:41 | Inpatient (IN) | payer MEDICARE ==
--- NOTE | 2022-03-30 18:46 | ED ---
General Adult HPI - General Chief complaint: Fall Stated complaint: transfer from [facility]- fracture T3 Time Seen by Provider: 03/30/22 17:44 Source: patient, RN/MD (Dr. Miller), EMS, RN notes reviewed Mode of arrival: EMS Limitations: no limitations - History of Present Illness Initial comments: Patient is a pleasant 87-year-old female presenting to the emergency department with concern for T3 fracture. Patient was seen at [facility] and transferred. Patient did have a fall 5 days ago and has been having upper back discomfort since that time. Patient did have computed tomography scan done showing T3 fracture. Patient was transferred here. Patient is having some discomfort still. Patient did receive pain medication and states that did improve her symptoms. - Related Data Home Medications Medication Instructions Recorded Confirmed Cholecalciferol [Vitamin D3 (25 1,000 unit PO DAILY 03/11/14 10/09/21 Mcg = 1000 Iu)] amLODIPine BESYLATE [Amlodipine 10 mg PO DAILY 03/11/14 10/09/21 Besylate] ALPRAZolam [Xanax] 0.25 mg PO HS 09/10/16 10/09/21 Citalopram Hydrobromide [CeleXA] 10 mg PO DAILY 09/10/16 10/09/21 Carlos/D3/Mag11/Zinc/Gear Nicker/Nigel/Bor 1 each PO DAILY 12/20/17 10/09/21 [Caltrate 600+D Plus Tablet] Vit C/E/Zn/Coppr/Lutein/Zeaxan 1 each PO BID 12/20/17 10/09/21 [Preservision Areds 2 Softgel] Chlorthalidone 25 mg PO DAILY 03/06/18 10/09/21 Losartan Potassium [Cozaar] 75 mg PO HS 03/06/18 10/09/21 Aspirin 81 mg PO DAILY 07/25/18 10/09/21 Atorvastatin [Lipitor] 20 mg PO HS 07/25/18 10/09/21 Metoprolol Tartrate 25 mg PO DAILY 02/25/20 10/09/21 Mirabegron [Myrbetriq] 50 mg PO DAILY 02/25/20 10/09/21 Budesonide-Formot 160-4.5 Mcg 2 puff INHALATION BID 04/01/20 10/09/21 [Symbicort 160-4.5 Mcg Inhaler] Allergies Allergy/AdvReac Type Severity Reaction Status Date / Time perfume Allergy Unknown Dyspnea,COU Verified 04/08/21 13:45 FADIA Review of Systems ROS Statement: Those systems with pertinent positive or pertinent negative responses have been documented in the HPI. ROS Other: All systems not noted in ROS Statement are negative. Constitutional: Denies: fever Eyes: Denies: eye pain ENT: Denies: ear pain Respiratory: Denies: dyspnea Cardiovascular: Denies: chest pain Endocrine: Reports: fatigue Musculoskeletal: Reports: back pain Past Medical History Past Medical History: Asthma, CVA/TIA, Eye Disorder, GERD/Reflux, Hypertension, Osteoarthritis (OA), Pneumonia Additional Past Medical History / Comment(s): Osteoporosis, hx of TIA (2012), Stomach bleed - January 2014 (taken off coumadin). Hx of Diverticulitis, Chronic Asthma with Bronchitis, macular degeneration ronald, hx anemia, urinary leakage, c-diff 09/2017 History of Any Multi-Drug Resistant Organisms: None Reported Past Surgical History: Appendectomy, Bowel Resection, Cholecystectomy, Hysterectomy, Joint Replacement, Orthopedic Surgery, Tonsillectomy Additional Past Surgical History / Comment(s): sigmoid resection with colostomy and reversal. Left knee replacement, ronald ganglion cyst removal, R wrist plate (repair of fx), ORIF right Hip, ronald cataracts, left wrist ORIF 2018 Past Anesthesia/Blood Transfusion Reactions: No Reported Reaction Past Psychological History: Anxiety Smoking Status: Former smoker Past Alcohol Use History: Daily Additional Past Alcohol Use History / Comment(s): QUIT SMOKING 35 YEARS AGO., SMOKED 2 PPD. started smoking age 18. DRINKS 2 GLASSES OF WINE DAILY. Past Drug Use History: None Reported - Past Family History Mother Family Medical History: Cancer Additional Family Medical History / Comment(s): COLON CANCER Brother(s) Family Medical History: Cancer Additional Family Medical History / Comment(s): LUNG CANCER Sister(s) Family Medical History: Cancer Additional Family Medical History / Comment(s): BREAST CANCER General Exam Limitations: no limitations General appearance: alert, in no apparent distress Head exam: Present: normocephalic Eye exam: Present: normal appearance Neck exam: Present: normal inspection Respiratory exam: Present: normal lung sounds bilaterally Cardiovascular Exam: Present: regular rate, normal rhythm GI/Abdominal exam: Present: soft. Absent: tenderness Extremities exam: Present: normal inspection, full ROM Back exam: Present: tenderness (Mild tenderness mid thoracic) Neurological exam: Present: alert, other (Distally all extremities are neurovascularly intact.). Absent: motor sensory deficit Expanded Sensory exam: Upper Extremity Light Touch: Normal, Lower Extremity Light Touch: Normal Motor strength exam: RUE: 5, LUE: 5, RLE: 5, LLE: 5 Psychiatric exam: Present: normal affect, normal mood Skin exam: Present: normal color Course Vital Signs 03/30/22 03/30/22 17:45 17:51 Temperature 98.3 F Pulse Rate 66 Respiratory 18 Rate Blood Pressure 193/75 O2 Sat by Pulse 93 L Oximetry Medical Decision Making - Medical Decision Making Case was discussed with Dr. Jefferson who states patient should be admitted to medicine and they will consult. Dr. Joe hasn't paged for admission, covering for Dr. Melchor Was pt. sent in by a medical professional or institution? @ -Yes, [facility] Dr. miller Did you speak to anyone other than the patient for history? @ -Dr. Pineda did help provide history Did you review nursing and triage notes? @ -Yes and agree Were old charts reviewed? @ -Reviewed chart from [facility]. Differential Diagnosis? @ -Differential Weakness: Hypoglycemia, shock, sepsis, hyponatremia, anemia, infection, NC, ETOH, adverse medicine reaction, overdose, stroke, this is not meant to be an all-inclusive list. Including traumatic injury, thoracic injury, other spine injury EKG interpreted by me (3pts min.)? @ -[none] X-rays interpreted by me (1pt min.)? @ -[none] CT interpreted by me (1pt min.)? @ -[none] U/S interpreted by me (1pt. min.)? @ -[none] What testing was considered but not performed? (CT, X-rays, U/S, labs)? Why? @ n What meds were considered but not given? Why? @ -[none] Did you discuss the management of the patient with other professionals? @ -Case discussed with Dr. Jefferson. Dr. Joe has been paged. Did you reconcile home meds? @ -If available Was smoking cessation discussed for >3mins.? @ -[none] Was critical care preformed (if so, how long)? @ -[none] Were there social determinants of health that impacted care today? How? (Homelessness, low income, unemployed, alcoholism, drug addiction, transportation, low edu. Level, literacy, decrease access to med. care, residential, rehab)? @ -Question patient's ability to function at home Was there de-escalation of care discussed even if they declined? (Discuss DNR or withdrawal of care, Hospice)? @ -n What co-morbidities impacted this encounter? (DM, HTN, Smoking, COPD, CAD, Cancer, CVA, Hep., AIDS, mental health diagnosis, sleep apnea, morbid obesity)? @ -Previous T5 compression Was patient admitted / discharged? @ -Admitted Undiagnosed new problem with uncertain prognosis? @ - Diagnosis with uncertain prognosis Drug Therapy requiring intensive monitoring for toxicity (Heparin, Nitro, Insulin, Cardizem)? @ -[none] Were any procedures done? @ -[none] Diagnosis/symptom? @ -T3 fracture Acute, or Chronic, or Acute on Chronic? @ -Acute Uncomplicated (without systemic symptoms) or Complicated (systemic symptoms)? @ -Uncomplicated at this time Side effects of treatment? @ -[none] Exacerbation, Progression, or Severe Exacerbation] @ -[no] Poses a threat to life or bodily function? @ -Potential threat to neurological function Disposition Clinical Impression: T3 vertebral fracture Disposition: ADMITTED IP TO THIS HOSP Is patient prescribed a controlled substance at d/c from ED?: No Referrals: Ward Fraga MD [Primary Care Provider] - 1-2 days Time of Disposition: 18:50
[2022-03-30] MEDS ORDERED: NALOXONE 0.4 MG/ML 1 ML VIAL IV PRN (18:54)
[2022-03-30] MEDS ORDERED: MORPHINE SULFATE 2 MG/ML SYRINGE IVP STA (18:54)
[2022-03-30] MEDS ORDERED: MORPHINE SULFATE 4 MG/ML SYRINGE IV PRN (18:54)
--- NOTE | 2022-03-31 08:42 | P.HPIM ---
History of Present Illness H&P Date: 03/30/22 Chief Complaint: Fall/fracture T3 87-year-old female, history of hypertension, asthma, osteoarthritis, CVA/TIA, presenting to the emergency department at [facility] after fall and back pain. Patient was seen at [facility] and workup revealed a T3 fracture; patient was transferred to our facility for higher level of care. Patient did have a fall 5 days ago and has been having upper back discomfort since that time. Patient did have computed tomography scan done showing T3 fracture. Patient was transferred here. Patient is having some discomfort still. Patient did receive pain medication and states that did improve her symptoms. Review of Systems REVIEW OF SYSTEMS: CONSTITUTIONAL: No fever, no malaise, no fatigue. HEENT: No recent visual problems or hearing problems. Denied any sore throat. CARDIOVASCULAR: No chest pain, orthopnea, PND, no palpitations, no syncope. PULMONARY: No shortness of breath, no cough, no hemoptysis. GASTROINTESTINAL: No diarrhea, no nausea, no vomiting, no abdominal pain. NEUROLOGICAL: No headaches, no weakness, no numbness. HEMATOLOGICAL: Denies any bleeding or petechiae. GENITOURINARY: Denies any burning micturition, frequency, or urgency. MUSCULOSKELETAL/RHEUMATOLOGICAL: Denies any joint pain, swelling, or any muscle pain. ENDOCRINE: Denies any polyuria or polydipsia. The rest of the 14-point review of systems is negative. Past Medical History Past Medical History: Asthma, CVA/TIA, Eye Disorder, GERD/Reflux, Hypertension, Osteoarthritis (OA), Pneumonia Additional Past Medical History / Comment(s): Osteoporosis, hx of TIA (? 2012), Stomach bleed - January 2014 (taken off coumadin). Hx of Diverticulitis, Chronic Asthma with Bronchitis, macular degeneration ronald, hx anemia, urinary leakage, c-diff 09/2017 History of Any Multi-Drug Resistant Organisms: None Reported Past Surgical History: Appendectomy, Bowel Resection, Cholecystectomy, Hysterectomy, Joint Replacement, Orthopedic Surgery, Tonsillectomy Additional Past Surgical History / Comment(s): sigmoid resection with colostomy and reversal. Left knee replacement, ronald ganglion cyst removal, R wrist plate (repair of fx), ORIF right Hip, ronald cataracts, left wrist ORIF 2018 Past Anesthesia/Blood Transfusion Reactions: No Reported Reaction Past Psychological History: Anxiety Smoking Status: Former smoker Past Alcohol Use History: Daily Additional Past Alcohol Use History / Comment(s): QUIT SMOKING 35 YEARS AGO., SMOKED 2 PPD. started smoking age 18. DRINKS 2 GLASSES OF WINE DAILY. Past Drug Use History: None Reported - Past Family History Mother Family Medical History: Cancer Additional Family Medical History / Comment(s): COLON CANCER Brother(s) Family Medical History: Cancer Additional Family Medical History / Comment(s): LUNG CANCER Sister(s) Family Medical History: Cancer Additional Family Medical History / Comment(s): BREAST CANCER Medications and Allergies Home Medications Medication Instructions Recorded Confirmed Type ALPRAZolam [Xanax] 0.25 mg PO HS 09/10/16 03/30/22 History Citalopram Hydrobromide [CeleXA] 10 mg PO DAILY 09/10/16 03/30/22 History Vit C/E/Zn/Coppr/Lutein/Zeaxan 1 cap PO BID 12/20/17 03/30/22 History [Preservision Areds 2 Softgel] Atorvastatin [Lipitor] 20 mg PO HS 07/25/18 03/30/22 History Diphenoxylate HCl/Atropine 1 tab PO BID PRN 03/30/22 03/30/22 History [Lomotil 2.5-0.025 mg Tablet] Furosemide [Lasix] 40 mg PO DAILY 03/30/22 03/30/22 History Gabapentin [Neurontin] 100 mg PO TID 03/30/22 03/30/22 History Losartan Potassium 100 mg PO DAILY 03/30/22 03/30/22 History Metoprolol Succinate (ER) [Toprol 25 mg PO DAILY 03/30/22 03/30/22 History Xl] Multivitamin W/Calcium 1 tab PO DAILY 03/30/22 03/30/22 History amLODIPine [Norvasc] 10 mg PO DAILY 03/30/22 03/30/22 History predniSONE 5 mg PO DAILY 03/30/22 03/30/22 History Allergies Allergy/AdvReac Type Severity Reaction Status Date / Time perfume Allergy Unknown Dyspnea,COU Verified 03/30/22 19:35 GHING unknown pain med AdvReac Confusion Uncoded 03/30/22 19:35 Physical Exam Vitals: Vital Signs Temp Pulse Resp BP Pulse Ox 03/30/22 17:51 193/75 03/30/22 17:45 98.3 F 66 18 93 L Intake and Output 03/30/22 03/30/22 03/30/22 06:59 14:59 22:59 Other: Weight 56.699 kg PHYSICAL EXAMINATION: GENERAL: The patient is alert and oriented x3, not in any acute distress. Well developed, well nourished. HEENT: Pupils are round and equally reacting to light. EOMI. No scleral icterus. No conjunctival pallor. Normocephalic, atraumatic. No pharyngeal erythema. No thyromegaly. CARDIOVASCULAR: S1 and S2 present. No murmurs, rubs, or gallops. PULMONARY: Chest is clear to auscultation, no wheezing or crackles. ABDOMEN: Soft, nontender, nondistended, normoactive bowel sounds. No palpable organomegaly. MUSCULOSKELETAL: Mild tenderness mid thoracic spine. EXTREMITIES: No cyanosis, clubbing, or pedal edema. NEUROLOGICAL: Gross neurological examination did not reveal any focal deficits. SKIN: No rashes. Assessment and Plan Assessment: 1. Mechanical fall/debility; patient does have history of osteoarthritis and osteoporosis; we will consult PT/OT for evaluation and further treatment 2. Fracture T3 vertebra; patient does have history of previous T5 compression fracture likely related to history of osteoporosis 3. Hypertension; amlodipine 10 mg daily, losartan 100 mg daily and metoprolol 25 mg daily 4. Asthma; not in exacerbation; we will resume home inhaler therapy 5. History of osteoarthritis; Tylenol 650 mg every 6 hours when necessary 6. Gastroesophageal reflux disease; Protonix 40 mg daily 7. Depression/anxiety; Celexa 10 mg daily along with Xanax 0.5 daily at bedtime DVT prophylaxis; SCDs/subcu Lovenox CODE STATUS; full code
[2022-03-31] MEDS: METOPROLOL SUCCINATE (ER) 25 MG TAB.ER.24H PO SCH (09:00)
[2022-03-31] MEDS: LOSARTAN 50 MG TAB PO SCH (09:00)
[2022-03-31] MEDS: MULTIVITAMINS, THERA 1 EACH TAB PO SCH (09:00)
[2022-03-31] MEDS: amLODIPine 10 MG TAB PO SCH (09:00)
[2022-03-31] MEDS: GABAPENTIN 100 MG CAP PO SCH ×3 (09:00→20:03)
[2022-03-31] MEDS: CITALOPRAM HYDROBROMIDE 10 MG TAB PO SCH (09:00)
[2022-03-31] MEDS ORDERED: FUROSEMIDE 40 MG TAB PO SCH (09:00)
[2022-03-31] MEDS: predniSONE 5 MG TAB PO SCH (09:01)
[2022-03-31 10:00] LABS: Basophils # (A) 0.08 X 10*3/uL (0.00-0.10); Basophils % (A) 0.9 %; Eosinophils # (A) 0.66 X 10*3/uL (0.04-0.35); Eosinophils % (A) 7.2 %; HCT 41.4 % (37.2-46.3); HGB 12.5 g/dL (12.0-15.0); Immature Grans, Automated 0.4 %; Lymphocytes # (A) 0.93 X 10*3/uL (0.90-5.00); Lymphocytes % (A) 10.2 %; MCH 29.6 pg (27.0-32.0); MCHC 30.2 g/dL (32.0-37.0); MCV 98.1 fL (80.0-97.0); Mean Platelet Volume 10.4 fL (9.5-12.2); Monocytes # (A) 1.41 X 10*3/uL (0.20-1.00); Monocytes % (A) 15.5 %; NRBC Per 100 WBC 0 /100 WBCS (0.0-0.0); Neutrophils # (A) 5.99 X 10*3/uL (1.80-7.70); Neutrophils % (A) 65.8 %; Platelet Count 202 X 10*3/uL (140-440); RBC 4.22 X 10*6/uL (4.10-5.20); RDW 15.8 % (11.5-14.5); WBC 9.11 X 10*3/uL (4.50-10.00)
[2022-03-31 10:07] LABS: African American GFR (CKD) 38.5 (60.0-200.0); Albumin 3.7 g/dL (3.8-4.9); Albumin/Globulin Ratio 1.76 (1.60-3.17); Anion Gap 18.2 mmol/L (10.00-18.00); BUN/Creat Ratio 26.71 Ratio (12.00-20.00); Blood Urea Nitrogen 37.4 mg/dL (9.0-27.0); Calcium 9.7 mg/dL (8.7-10.3); Carbon Dioxide 18.8 mmol/L (20.0-27.5); Globulin 2.1 g/dL (1.6-3.3); Non-African American GFR(CKD) 33.2 (60.0-200.0); Potassium 5.5 mmol/L (3.5-5.5); Total Bilirubin 0.4 mg/dL (0.30-1.20); Total Protein 5.8 g/dL (6.2-8.2)
--- NOTE | 2022-03-31 10:55 | P.CNOR ---
History of Present Illness - HPI Consult date: 03/31/22 Consult reason: back pain History of present illness: History of Presenting Illness Patient is a pleasant 87-year-old female who was transferred from [facility] to our ER for evaluation of a T3 compression fracture. Reports state patient had a CT of the Thoracic performed at [facility], awaiting those films to be uploaded for review. Patient states she had a fall approximately 5 days ago and has had constant pain in her upper back. She denies hitting her head or LOC. Her pain in upper back is exacerbated with increased activity. She finds relief with pain medication and rest. She denies any numbness or tingling to upper extremities. Patient is known to our services. She is currently being worked up in our office for low back pain and right lower extremity radiculopathy. Patient was prescribed gabapentin. On 03/15/2022 she was referred to PM&R for chronic pain management. Patient does not want any surgical interventions. She has had a previous total left hip arthroplasty and a right hip IM nail, denies any other orthopedic history. She is currently resting on a stretcher in the ER, awaiting bed placement. She denies any fevers/chills, nausea/vomiting, or chest pain. Review of Systems Pertinent positives and negatives as discussed in HPI, a complete review of systems was performed and all other systems are negative. Physical Examination General: The patient is awake and alert, in no acute distress Skin: Skin is warm and dry with no obvious rashes or lesions. Hairy patches absent, no dorsal skin dimples, no cafe au lait spots, and no surgical incisions. Eye: Pupils are equal, round and reactive to light, extra-ocular movements are intact; there is normal conjunctiva bilaterally. Neck: The neck is supple, there is no tenderness and ROM intact. Cardiovascular: There is a regular rate and rhythm. No murmur, rub or gallop is appreciated. Respiratory: Lungs are clear to auscultation, respirations are non-labored, breath sounds are equal. Gastrointestinal: Soft, non-distended, non-tender abdomen. Back: There is no tenderness to palpation in the midline, paralumbar, parathoracic or buttocks region. There is no obvious deformity. Musculoskeletal: ROM limited secondary to pain and stiffness from surgical procedure. Shoulder abduction 5/5, elbow flexors 5/5, wrist dorsiflexors 5/5. finger abductor 5/5, actuarial director 5/5, hip flexor 4/5, knee flexor 4/5, ankle dorsiflexor 4/5, ankle plantarflexion 4/5 and extensor hallucis 4/5. Neurological: CN 2-12 intact. There are no obvious motor or sensory deficits. Movement and coordination equal and intact. Sensory exam to light touch intact C5-T1 and intact from L2-S1. Reflexes 2/4 in bilateral upper and lower extremities. Negative Hoffmans, babinski, and clonus signs. Psychiatric: Cooperative, appropriate mood & affect, normal judgment. Assessment and Plan Fall from standing T3 compression fracture Upper back pain -Appreciate consult and team management -CT of the Thoracic performed at [facility], awaiting those films to be uploaded for review -Continue with pain management -TLSO brace prescription has been placed in chart, patient to wear when up and about, may take break when in chair, remove for showers -PT/OT WBAT We will continue to follow I reviewed and discussed this case with my attending Dr. Otto, whom has reviewed this chart and films and is in agreement with assessment and plan of care as outlined above. I have personally seen and examined the patient, performed the documentation and the assessment and plan as written. Number of minutes spent on the visit: 15m. Past Medical History Past Medical History: Asthma, CVA/TIA, Eye Disorder, GERD/Reflux, Hypertension, Osteoarthritis (OA), Pneumonia Additional Past Medical History / Comment(s): Osteoporosis, hx of TIA (? 2012), Stomach bleed - January 2014 (taken off coumadin). Hx of Diverticulitis, C hronic Asthma with Bronchitis, macular degeneration ronald, hx anemia, urinary leakage, c-diff 09/2017 History of Any Multi-Drug Resistant Organisms: None Reported Past Surgical History: Appendectomy, Bowel Resection, Cholecystectomy, Hysterectomy, Joint Replacement, Orthopedic Surgery, Tonsillectomy Additional Past Surgical History / Comment(s): sigmoid resection with colostomy and reversal. Left knee replacement, ronald ganglion cyst removal, R wrist plate (repair of fx), ORIF right Hip, ronald cataracts, left wrist ORIF 2018 Past Anesthesia/Blood Transfusion Reactions: No Reported Reaction Past Psychological History: Anxiety Smoking Status: Former smoker Past Alcohol Use History: Daily Additional Past Alcohol Use History / Comment(s): QUIT SMOKING 35 YEARS AGO., SMOKED 2 PPD. started smoking age 18. DRINKS 2 GLASSES OF WINE DAILY. Past Drug Use History: None Reported - Past Family History Mother Family Medical History: Cancer Additional Family Medical History / Comment(s): COLON CANCER Brother(s) Family Medical History: Cancer Additional Family Medical History / Comment(s): LUNG CANCER Sister(s) Family Medical History: Cancer Additional Family Medical History / Comment(s): BREAST CANCER Medications and Allergies Home Medications Medication Instructions Recorded Confirmed Type ALPRAZolam [Xanax] 0.25 mg PO HS 09/10/16 03/30/22 History Citalopram Hydrobromide [CeleXA] 10 mg PO DAILY 09/10/16 03/30/22 History Vit C/E/Zn/Coppr/Lutein/Zeaxan 1 cap PO BID 12/20/17 03/30/22 History [Preservision Areds 2 Softgel] Atorvastatin [Lipitor] 20 mg PO HS 07/25/18 03/30/22 History Diphenoxylate HCl/Atropine 1 tab PO BID PRN 03/30/22 03/30/22 History [Lomotil 2.5-0.025 mg Tablet] Furosemide [Lasix] 40 mg PO DAILY 03/30/22 03/30/22 History Gabapentin [Neurontin] 100 mg PO TID 03/30/22 03/30/22 History Losartan Potassium 100 mg PO DAILY 03/30/22 03/30/22 History Metoprolol Succinate (ER) [Toprol 25 mg PO DAILY 03/30/22 03/30/22 History Xl] Multivitamin W/Calcium 1 tab PO DAILY 03/30/22 03/30/22 History amLODIPine [Norvasc] 10 mg PO DAILY 03/30/22 03/30/22 History predniSONE 5 mg PO DAILY 03/30/22 03/30/22 History Allergies Allergy/AdvReac Type Severity Reaction Status Date / Time perfume Allergy Unknown Dyspnea,COU Verified 03/30/22 19:35 GHING unknown pain med AdvReac Confusion Uncoded 03/30/22 19:35 Results - Labs Result Diagrams: 03/31/22 05:39 03/31/22 05:39
--- NOTE | 2022-03-31 14:52 | P.PN ---
Subjective Progress Note Date: 03/31/22 Principal diagnosis: Mechanical fall/debility Fracture T3 vertebra 87-year-old female, history of hypertension, asthma, osteoarthritis, CVA/TIA, presenting to the emergency department at [facility] after fall and back pain. Patient was seen at [facility] and workup revealed a T3 fracture; patient was transferred to our facility for higher level of care. Patient did have a fall 5 days ago and has been having upper back discomfort since that time. Patient did have computed tomography scan done showing T3 fracture. Patient was transferred here. Patient is having some discomfort still. Patient did receive pain medication and states that did improve her symptoms. Patient has been evaluated by orthopedic surgery -CT of the Thoracic performed at [facility], awaiting those films to be uploaded for review -Continue with pain management -TLSO brace prescription has been placed in chart, patient to wear when up and about, may take break when in chair, remove for showers -PT/OT WBAT Objective - Vital Signs Vital signs: Vital Signs Temp 97.0 F L 03/31/22 08:00 Pulse 66 03/31/22 08:00 Resp 16 03/31/22 08:00 BP 163/59 03/31/22 08:00 Pulse Ox 98 03/31/22 08:00 FiO2 Intake & Output 03/30/22 03/31/22 03/31/22 18:59 06:59 18:59 Intake Total 240 Balance 240 Weight 56.699 kg 56.699 kg Intake: Oral 240 Other: # Voids 1 - Exam GENERAL: The patient is alert and oriented x3, not in any acute distress. Well developed, well nourished. HEENT: Pupils are round and equally reacting to light. EOMI. No scleral icterus. No conjunctival pallor. Normocephalic, atraumatic. No pharyngeal erythema. No thyromegaly. CARDIOVASCULAR: S1 and S2 present. No murmurs, rubs, or gallops. PULMONARY: Chest is clear to auscultation, no wheezing or crackles. ABDOMEN: Soft, nontender, nondistended, normoactive bowel sounds. No palpable organomegaly. MUSCULOSKELETAL: Mild tenderness mid thoracic spine. EXTREMITIES: No cyanosis, clubbing, or pedal edema. NEUROLOGICAL: Gross neurological examination did not reveal any focal deficits. SKIN: No rashes. - Labs CBC & Chem 7: 01/04/23 05:39 03/31/22 05:39 Labs: Abnormal Lab Results - Last 24 Hours (Table) 03/31/22 03/31/22 Range/Units 05:39 05:39 MCV 98.1 H (80.0-97.0) fL MCHC 30.2 L (32.0-37.0) g/dL RDW 15.8 H (11.5-14.5) % Monocytes # 1.41 H (0.20-1.00) X 10*3/uL Eosinophils # 0.66 H (0.04-0.35) X 10*3/uL Carbon Dioxide 18.8 L (20.0-27.5) mmol/L Anion Gap 18.20 H (10.00-18.00) mmol/L BUN 37.4 H (9.0-27.0) mg/dL Est GFR (CKD-EPI)AfAm 38.5 L (60.0-200.0) Est GFR (CKD-EPI)NonAf 33.2 L (60.0-200.0) BUN/Creatinine Ratio 26.71 H (12.00-20.00) Ratio Glucose 69 L (70-110) mg/dL Total Protein 5.8 L (6.2-8.2) g/dL Albumin 3.7 L (3.8-4.9) g/dL Assessment and Plan Assessment: 1. Mechanical fall/debility; patient does have history of osteoarthritis and osteoporosis; we will consult PT/OT for evaluation and further treatment 2. Fracture T3 vertebra; patient does have history of previous T5 compression fracture likely related to history of osteoporosis 3. Hypertension; amlodipine 10 mg daily, losartan 100 mg daily and metoprolol 25 mg daily 4. Asthma; not in exacerbation; we will resume home inhaler therapy 5. History of osteoarthritis; Tylenol 650 mg every 6 hours when necessary 6. Gastroesophageal reflux disease; Protonix 40 mg daily 7. Depression/anxiety; Celexa 10 mg daily along with Xanax 0.5 daily at bedtime DVT prophylaxis; SCDs/subcu Lovenox CODE STATUS; full code
[2022-03-31] MEDS: ALPRAZolam 0.25 MG TAB PO SCH (20:03)
[2022-03-31] MEDS: ATORVASTATIN 20 MG TAB PO SCH (20:03)
[2022-04-01 07:26] LABS: Calcium 8.9 mg/dL (8.4-10.2); Potassium 4.1 mmol/L (3.5-5.1)
--- NOTE | 2022-04-01 08:06 | P.PN ---
Subjective Progress Note Date: 04/01/22 Principal diagnosis: Back pain Patient seen and examined this morning. She is currently resting in bed. Patient denies any numbness or tingling to bilateral upper or lower extremities. Patient states that she has been working with physical therapy and tolerating well. She states that she will be following up outpatient with PM&R. TLSO brace is at bedside. Patient has been afebrile, denies nausea/vomiting, or chest pain. Objective - Vital Signs Vital signs: Vital Signs Temp 97.7 F 04/01/22 02:00 Pulse 57 L 04/01/22 02:00 Resp 16 04/01/22 02:00 BP 147/70 04/01/22 02:00 Pulse Ox 98 04/01/22 02:00 FiO2 Intake & Output 03/31/22 03/31/22 04/01/22 06:59 18:59 06:59 Intake Total 600 Output Total 700 Balance -100 Weight 56.699 kg Intake: Oral 600 Output: Urine 700 Other: Voiding Method Indwelling Catheter # Voids 1 # Bowel Movements 0 - Exam General: The patient is awake and alert, in no acute distress Skin: Skin is warm and dry with no obvious rashes or lesions. Hairy patches absent, no dorsal skin dimples, no cafe au lait spots, and no surgical incisions. Eye: Pupils are equal, round and reactive to light, extra-ocular movements are intact; there is normal conjunctiva bilaterally. Neck: The neck is supple, there is no tenderness and ROM intact. Cardiovascular: There is a regular rate and rhythm. No murmur, rub or gallop is appreciated. Respiratory: Lungs are clear to auscultation, respirations are non-labored, breath sounds are equal. Gastrointestinal: Soft, non-distended, non-tender abdomen. Back: There is no tenderness to palpation in the midline, paralumbar, parathoracic or buttocks region. There is no obvious deformity. Musculoskeletal: ROM limited secondary to pain and stiffness from surgical procedure. Shoulder abduction 5/5, elbow flexors 5/5, wrist dorsiflexors 5/5. finger abductor 5/5, bag valver 5/5, hip flexor 4/5, knee flexor 4/5, ankle dorsiflexor 4/5, ankle plantarflexion 4/5 and extensor hallucis 4/5. Neurological: CN 2-12 intact. There are no obvious motor or sensory deficits. Movement and coordination equal and intact. Sensory exam to light touch intact C5-T1 and intact from L2-S1. Reflexes 2/4 in bilateral upper and lower extremities. Negative Hoffmans, babinski, and clonus signs. Psychiatric: Cooperative, appropriate mood & affect, normal judgment. - Labs CBC & Chem 7: 03/31/22 05:39 04/01/22 06:34 Labs: Abnormal Lab Results - Last 24 Hours (Table) 03/31/22 03/31/22 Range/Units 05:39 05:39 MCV 98.1 H (80.0-97.0) fL MCHC 30.2 L (32.0-37.0) g/dL RDW 15.8 H (11.5-14.5) % Monocytes # 1.41 H (0.20-1.00) X 10*3/uL Eosinophils # 0.66 H (0.04-0.35) X 10*3/uL Carbon Dioxide 18.8 L (20.0-27.5) mmol/L Anion Gap 18.20 H (10.00-18.00) mmol/L BUN 37.4 H (9.0-27.0) mg/dL Est GFR (CKD-EPI)AfAm 38.5 L (60.0-200.0) Est GFR (CKD-EPI)NonAf 33.2 L (60.0-200.0) BUN/Creatinine Ratio 26.71 H (12.00-20.00) Ratio Glucose 69 L (70-110) mg/dL Total Protein 5.8 L (6.2-8.2) g/dL Albumin 3.7 L (3.8-4.9) g/dL Assessment and Plan Assessment: Fall from standing T3 compression fracture Upper back pain Plan: Plan: -Appreciate sediment remediation consultant and team management. -Activity: Ambulate QID, OOB all meals, up and about, limit lifting bending twisting to less than 5 lbs. Use walker or cane if needed for stability. -Daily PT/OT, increase ambulation strength and balance. - TLSO Brace when up and about, not needed in bed or chair -Pain control: Adequate at this time -Encourage IS 10x/hr -Dispo: Patient is cleared from orthopedic standpoint for discharge Our services are signing off at this time, please feel free to reach out with any questions or concerns. Patient has an appointment to follow up with our office, if she needs to be seen sooner or she may call and reschedule. *I reviewed and discussed this case with my attending Dr. Otto, whom has reviewed this chart and films and is in agreement with assessment and plan of care as outlined above. I have personally seen and examined the patient, performed the documentation and the assessment and plan as written. Number of minutes spent on the visit: 15m
--- NOTE | 2022-04-01 08:44 | P.PN ---
Subjective 87-year-old female, history of hypertension, asthma, osteoarthritis, CVA/TIA, presenting to the emergency department at [facility] after fall and back pain. Patient was seen at [facility] and workup revealed a T3 fracture; patient was transferred to our facility for higher level of care. Patient did have a fall 5 days ago and has been having upper back discomfort since that time. Patient did have computed tomography scan done showing T3 fracture. Patient was transferred here. Patient is having some discomfort still. Patient did receive pain medication and states that did improve her symptoms. Patient has been evaluated by orthopedic surgery -CT of the Thoracic performed at [facility], awaiting those films to be uploaded for review -Continue with pain management -TLSO brace prescription has been placed in chart, patient to wear when up and about, may take break when in chair, remove for showers -PT/OT WBAT 04/01/2022 This is a pleasant 87 years old female who presents with back pain after she fell home 5 days ago and found to have T3 fracture, patient was transferred from [facility], orthopedic team recommended TLSO brace which is at bedside, patient wear about and willing to use it when she is up out of bed as she was informed. Also her pain was controlled. She still feels generally weak, PT/OT is consulted Her creatinine went up 1.4 up to 1.6, hold oral Lasix and consult sueding and buffing machine operator On admission she has some irritation 311, Fisher catheter was placed despite this creatinine went up, we will discontinue Fisher catheter and keep checking bladder scan 48 hours Other than that she is awake alert, lying in bed denies any weakness or numbness or dizziness. CAT scan of the abdomen and pelvis at [facility], no dilated ducts fibrotic changes, atelectasis to right lung base Also patient on prednisone 5 mg and she does not know why. Patient says she is not on home oxygen We will check chest x-ray Objective - Vital Signs Vital signs: Vital Signs Temp 97.7 F 04/01/22 02:00 Pulse 55 L 04/01/22 08:03 Resp 16 04/01/22 02:00 BP 134/64 04/01/22 08:03 Pulse Ox 94 L 04/01/22 08:03 FiO2 Intake & Output 01/04/23 01/05/23 01/05/23 18:59 06:59 18:59 Intake Total 600 Output Total 700 175 Balance -100 -175 Intake: Oral 600 Output: Urine 700 175 Uretheral (Fisher) 175 Other: Voiding Method Indwelling Catheter # Bowel Movements 0 - Exam -GENERAL: The patient is alert and oriented x3, not in any acute distress. Well developed, well nourished. Generally weak HEENT: Pupils are round and equally reacting to light. EOMI. No scleral icterus. No conjunctival pallor. Normocephalic, atraumatic. No pharyngeal erythema. No thyromegaly. CARDIOVASCULAR: S1 and S2 present. No murmurs, rubs, or gallops. PULMONARY: Chest is clear to auscultation, no wheezing or crackles. -ABDOMEN: Soft, nontender, nondistended, normoactive bowel sounds. No palpable organomegaly. Fisher catheter in place MUSCULOSKELETAL: No joint swelling or deformity. EXTREMITIES: No cyanosis, clubbing, or pedal edema. NEUROLOGICAL: Gross neurological examination did not reveal any focal deficits. SKIN: No rashes. no petechiae. - Labs CBC & Chem 7: 03/31/22 05:39 04/01/22 06:34 Labs: Abnormal Lab Results - Last 24 Hours (Table) 03/31/22 03/31/22 04/01/22 Range/Units 05:39 05:39 06:34 MCV 98.1 H (80.0-97.0) fL MCHC 30.2 L (32.0-37.0) g/dL RDW 15.8 H (11.5-14.5) % Monocytes # 1.41 H (0.20-1.00) X 10*3/uL Eosinophils # 0.66 H (0.04-0.35) X 10*3/uL Sodium 134 L (137-145) mmol/L Carbon Dioxide 18.8 L (20.0-27.5) mmol/L Anion Gap 18.20 H (10.00-18.00) mmol/L BUN 37.4 H 49 H (9.0-27.0) mg/dL Creatinine 1.60 H (0.52-1.04) mg/dL Est GFR (CKD-EPI)AfAm 38.5 L (60.0-200.0) Est GFR (CKD-EPI)NonAf 33.2 L (60.0-200.0) BUN/Creatinine Ratio 26.71 H (12.00-20.00) Ratio Glucose 69 L (70-110) mg/dL Total Protein 5.8 L (6.2-8.2) g/dL Albumin 3.7 L (3.8-4.9) g/dL Assessment and Plan Assessment: 1. Mechanical fall/debility; patient does have history of osteoarthritis and osteoporosis; we will consult PT/OT for evaluation and further treatment. Check chest x-ray for follow-up 2. Fracture T3 vertebra; patient does have history of previous T5 compression fracture likely related to history of osteoporosis. Orthopedic team signed off the case. TLSO brace at bedside 3. Acute kidney injury, hold Lasix, consult sueding and buffing machine operator. Discontinue Fisher catheter check bladder scan 4. Asthma; not in exacerbation; we will resume home inhaler therapy 5. History of osteoarthritis; Tylenol 650 mg every 6 hours when necessary 6. Gastroesophageal reflux disease; Protonix 40 mg daily 7. Depression/anxiety; Celexa 10 mg daily along with Xanax 0.5 daily at bedtime 8. Hypertension; amlodipine 10 mg daily, losartan 100 mg daily and metoprolol 25 mg daily DVT prophylaxis; SCDs/subcu Lovenox CODE STATUS; full code
--- NOTE | 2022-04-01 09:48 | XR ---
EXAMINATION TYPE: XR chest 1V DATE OF EXAM: 04/01/2022 COMPARISON: 12/26/2018 HISTORY: 87-year-old female weakness TECHNIQUE: Single frontal view of the chest is obtained. FINDINGS: Loop recorder device projects over the left side of the heart. Scattered calcifications throughout th e aorta. Low lung volumes. Patchy peripheral interstitial opacities are noted. No sizable pleural eff usion. Heart borderline enlarged. IMPRESSION: Borderline cardiomegaly and hypoventilatory changes. Patchy peripheral interstitial densities are not ed. Correlate for interstitial pneumonitis or atypical/COVID pneumonia.
[2022-04-01] MEDS: LOSARTAN 50 MG TAB PO SCH (10:31)
[2022-04-01] MEDS: amLODIPine 10 MG TAB PO SCH (10:31)
[2022-04-01] MEDS: MULTIVITAMINS, THERA 1 EACH TAB PO SCH (10:31)
[2022-04-01] MEDS: CITALOPRAM HYDROBROMIDE 10 MG TAB PO SCH (10:31)
[2022-04-01] MEDS: GABAPENTIN 100 MG CAP PO SCH ×3 (10:31→21:29)
[2022-04-01] MEDS: METOPROLOL SUCCINATE (ER) 25 MG TAB.ER.24H PO SCH (10:31)
[2022-04-01] MEDS: predniSONE 5 MG TAB PO SCH (10:32)
--- NOTE | 2022-04-01 13:26 | P.NPCON ---
History of Present Illness - Reason for Consult acute renal failure - History of Present Illness Patient is an 87-year-old female with history of hypertension, asthma, osteoarthritis, CVA/TIA. Patient initially presented to [facility] after a fall. She was found to have T3 fracture and was subsequently transferred here for orthopedic evaluation. Serum creatinine was 1.4 yesterday and it is up to 1.6 today. Patient has not voided much today. Blood pressure is not low Maintained on Cozaar. No history of use of NSAIDs. No IV fluids currently however patient's states that she received a lot of IV fluids at the other facility. Review of Systems As per HPI, other systems negative Past Medical History Past Medical History: Asthma, CVA/TIA, Eye Disorder, GERD/Reflux, Hypertension, Osteoarthritis (OA), Pneumonia Additional Past Medical History / Comment(s): Osteoporosis, hx of TIA (? 2012), Stomach bleed - January 2014 (taken off coumadin). Hx of Diverticulitis, Chronic Asthma with Bronchitis, macular degeneration ronald, hx anemia, urinary leakage, c-diff 09/2017 History of Any Multi-Drug Resistant Organisms: None Reported Past Surgical History: Appendectomy, Bowel Resection, Cholecystectomy, Hysterectomy, Joint Replacement, Orthopedic Surgery, Tonsillectomy Additional Past Surgical History / Comment(s): sigmoid resection with colostomy and reversal. Left knee replacement, ronald ganglion cyst removal, R wrist plate (repair of fx), ORIF right Hip, ronald cataracts, left wrist ORIF 2018 Past Anesthesia/Blood Transfusion Reactions: No Reported Reaction Past Psychological History: Anxiety Smoking Status: Former smoker Past Alcohol Use History: Daily Additional Past Alcohol Use History / Comment(s): QUIT SMOKING 35 YEARS AGO., SMOKED 2 PPD. started smoking age 18. DRINKS 2 GLASSES OF WINE DAILY. Past Drug Use History: None Reported - Past Family History Mother Family Medical History: Cancer Additional Family Medical History / Comment(s): COLON CANCER Brother(s) Family Medical History: Cancer Additional Family Medical History / Comment(s): LUNG CANCER Sister(s) Family Medical History: Cancer Additional Family Medical History / Comment(s): BREAST CANCER Medications and Allergies Home Medications Medication Instructions Recorded Confirmed Type ALPRAZolam [Xanax] 0.25 mg PO HS 09/10/03/30/22 History Citalopram Hydrobromide [CeleXA] 10 mg PO DAILY 09/10/16 03/30/22 History Vit C/E/Zn/Coppr/Lutein/Zeaxan 1 cap PO BID 12/20/17 03/30/22 History [Preservision Areds 2 Softgel] Atorvastatin [Lipitor] 20 mg PO HS 07/25/18 03/30/22 History Diphenoxylate HCl/Atropine 1 tab PO BID PRN 03/30/22 03/30/22 History [Lomotil 2.5-0.025 mg Tablet] Furosemide [Lasix] 40 mg PO DAILY 03/30/22 03/30/22 History Gabapentin [Neurontin] 100 mg PO TID 03/30/22 03/30/22 History Losartan Potassium 100 mg PO DAILY 03/30/22 03/30/22 History Metoprolol Succinate (ER) [Toprol 25 mg PO DAILY 03/30/22 03/30/22 History Xl] Multivitamin W/Calcium 1 tab PO DAILY 03/30/22 03/30/22 History amLODIPine [Norvasc] 10 mg PO DAILY 03/30/22 03/30/22 History predniSONE 5 mg PO DAILY 03/30/22 03/30/22 History Allergies Allergy/AdvReac Type Severity Reaction Status Date / Time perfume Allergy Unknown Dyspnea,COU Verified 03/30/22 19:35 GHING hydrocodone [From [place]] AdvReac Confusion Verified 03/31/22 13:17 oxycodone AdvReac Confusion Verified 03/31/22 13:17 unknown pain med AdvReac Confusion Uncoded 03/30/22 19:35 Physical Exam Vitals: Vital Signs Temp Pulse Resp BP BP Pulse Ox 04/01/22 08:03 55 L 134/64 94 L 04/01/22 02:00 97.7 F 57 L 16 147/70 98 03/31/22 19:41 56 L 03/31/22 19:39 97 F L 56 L 136/61 98 03/31/22 14:00 98.1 F 61 118/58 98 Intake and Output 03/31/22 04/01/22 04/01/22 22:59 06:59 14:59 Intake Total 240 240 Output Total 100 175 Balance 140 -175 240 Intake: Oral 240 240 Output: Urine 100 175 Uretheral (Fisher) 175 Other: Voiding Method Indwelling Catheter Toilet # Bowel Movements 0 Patient is awake, comfortable, no acute distress Examination of the heart S1 and S2 Examination of the lungs bilateral breath sounds are heard Abdomen is soft nontender Examination lower extremities shows no significant edema DIGITAL MEDIA STRATEGIST exam grossly intact Results - Lab Results Most recent lab results Calcium 8.9 mg/dL (8.4-10.2) 04/01/22 06:34 03/31/22 05:39 04/01/22 06:34 Assessment and Plan Assessment: 1. Acute kidney injury, nonoliguric, rule out urine retention. Check urine analysis. Check ultrasound of the kidneys 2. Status post fall and T3 fracture been evaluated by orthopedic surgery 3. CK D stage III with previous creatinine 1.3 mg/dL in September 2019. Etiology is likely nephrosclerosis. 4. Hypertension maintained on angiotensin receptor blockers Plan: Check bladder scan and rule out urine retention Add IV fluids if no evidence of retention Check urine analysis Check ultrasound of the kidneys Decrease Cozaar if renal function is not improved Thank you for the consultation. We will continue to follow the patient with you during her hospitalization.
--- NOTE | 2022-04-01 14:59 | US ---
EXAMINATION TYPE: US kidneys/renal and bladder DATE OF EXAM: 04/01/2022 COMPARISON: NONE CLINICAL HISTORY: 87-year-old female ELIDA. Abnormal labs TECHNIQUE: Multiple sonographic images of the kidneys and bladder are obtained. FINDINGS: EXAM MEASUREMENTS: Right Kidney: 9.4 x 3.6 x 4.8 cm Left Kidney: 7.8 x 3.3 x 4.4 cm Right Kidney: No hydronephrosis or masses seen Left Kidney: Asymmetrically smaller in size, no hydronephrosis or masses seen Bladder: not distended limiting its evaluation. IMPRESSION: No hydronephrosis. Slight asymmetric atrophy of the left kidney.
[2022-04-01 19:55] LABS: Appearance,Urine Cloudy (Clear); Bacteria,Urine Moderate /hpf; Bilirubin,Urine Negative (Negative); Blood,Urine Negative (Negative); Budding Yeast,Urine Occasional /hpf; Color,Urine Yellow; Glucose,Urine (UA) Negative (Negative); Hyaline Casts,Urine 14 /lpf (0-2); Ketones,Urine Negative (Negative); Leukocyte Esterase,Urine Large (Negative); Mucus,Urine Rare /hpf; Nitrite,Urine Negative (Negative); Protein,Urine Trace (Negative); RBC,Urine 4 /hpf (0-5); Specific Gravity,Urine 1.011 (1.001-1.035); Squamous Epithelial Cell,Urine 2 /hpf (0-4); Urobilinogen,Urine <2.0 mg/dL (<2.0); WBC,Urine 20 /hpf (0-5)
[2022-04-01] MEDS: ALPRAZolam 0.25 MG TAB PO SCH (21:29)
[2022-04-01] MEDS: ATORVASTATIN 20 MG TAB PO SCH (21:29)
--- NOTE | 2022-04-02 07:16 | CDI ---
Documentation Clarification Form Date: 04/02/2022 7:04:55 AM From: Vivian Addison CCS, CCDS Admit Date: 03/30/2022 6:55:00 PM Patient Name: Susy Dee Visit Number: [id number] Discharge Date: ATTENTION: The Clinical Documentation Specialists (CDI) and [facility] Coding Staff appreciate your assistance in clarifying documentation. Please respond to the clarification below the line at the bottom and electronically sign. The CDI & [facility] Coding staff will review the response and follow-up if needed. Please note: Queries are made part of the Legal Health Record. If you have any questions, please contact the author of this message via ITS. Dr. Harry Otto: Per the chart documentation in the 03/30 ED Note, the 03/30 H/P and the 03/31 Ortho/Spine Consult this 87 yo female patient is diagnosed with a T3 compression fracture, Fall 5 days ago and has a history of a previous T5 compression fracture likely related to history of osteoporosis. Additional clarification regarding the etiology of the T3 Fracture is requested. Patient history/risk factors per the 03/30 H/P: Hypertension, Asthma, Osteoarthritis, GERD, Depression/Anxiety. Former smoker. Clinical Indicators: Presented to the ED on 03/30 as a transfer from [facility] via EMS with upper back pain and T3 fracture per a CT scan. Admit with same for evaluation by ortho-spine surgeon. 03/30 VS Stable 03/30 LAB: Monocytes 1.41, Eosinophils 0.66. Treatment 03/30: Consult Ortho/Spine Surgeon, po Tylenol 650 mg q6H/prn, IV Morphine 4 mg q4H/prn. Please clarify the etiology of the patient's spinal fracture, if known: [ ] Osteoporosis (specify type if known): [ ] Age related [ ] Disuse [ ] Idiopathic [ ] Post-traumatic [ ] Other (please specify): [ ] Unable to determine (Template Last Revised: May 2020) Per Charting she had a fall 5 days prior. She has a multiple risks factors most likely etiology is a posttraumatic osteoporotic fracture of the spine. MANUEL
[2022-04-02] MEDS ORDERED: LOSARTAN 50 MG TAB PO SCH (09:00)
[2022-04-02] MEDS: METOPROLOL SUCCINATE (ER) 25 MG TAB.ER.24H PO SCH (09:10)
[2022-04-02] MEDS: GABAPENTIN 100 MG CAP PO SCH ×3 (09:10→20:27)
[2022-04-02] MEDS: CITALOPRAM HYDROBROMIDE 10 MG TAB PO SCH (09:10)
[2022-04-02] MEDS: predniSONE 5 MG TAB PO SCH (09:10)
[2022-04-02] MEDS: MULTIVITAMINS, THERA 1 EACH TAB PO SCH (09:10)
--- NOTE | 2022-04-02 10:25 | P.PN ---
Subjective Patient is seen for follow-up for acute kidney injury. She was admitted to the hospital with history of fall and sustained a T3 fracture. Patient has history of urine retention for which a Fisher catheter was placed about 10 days ago. This was somehow removed yesterday and patient was having urine retention for which she had a straight cath done. Serum creatinine had increased to 1.6 from 1.4 on initial admission. The Cozaar was decreased yesterday Blood pressure has not been low Labs are pending from today No significant complaints today. Objective - Vital Signs Vital signs: Vital Signs Temp 97.5 F L 04/02/22 02:00 Pulse 53 L 04/02/22 06:51 Resp 16 04/02/22 06:51 BP 116/63 04/02/22 06:51 Pulse Ox 96 04/02/22 06:51 FiO2 Intake & Output 04/01/22 04/02/22 04/02/22 18:59 06:59 18:59 Intake Total 240 Output Total 450 Balance 240 -450 Intake: Oral 240 Output: Urine 450 Uretheral (Fisher) 450 Other: Voiding Method Toilet Toilet # Voids 1 1 - Exam Patient is awake, comfortable, no acute distress Examination of the heart S1 and S2 Examination of the lungs bilateral breath sounds are heard Abdomen is soft nontender Examination lower extremities shows no significant edema SCREEN PRINTING INSPECTOR exam grossly intact - Labs CBC & Chem 7: 03/31/22 05:39 04/01/22 06:34 Labs: Abnormal Lab Results - Last 24 Hours (Table) 04/01/22 Range/Units 18:00 Urine Appearance Cloudy H (Clear) Urine Protein Trace H (Negative) Ur Leukocyte Esterase Large H (Negative) Urine WBC 20 H (0-5) /hpf Urine Bacteria Moderate H (None) /hpf Hyaline Casts 14 H (0-2) /lpf Urine Mucus Rare H (None) /hpf Urine Yeast (Budding) Occasional H (None) /hpf Microbiology - Last 24 Hours (Table) 04/02/22 06:00 Urine Culture - Preliminary Urine,Catheterized Assessment and Plan Assessment: 1. Acute kidney injury, nonoliguric, possible ATN. UA shows 14 hyaline casts, wbc 20 and trace protein ultrasound of the kidneys shows no evidence of obstruction. 2. Status post fall and T3 fracture been evaluated by orthopedic surgery 3. CK D stage III with previous creatinine 1.3 mg/dL in September 2019. Etiology is likely nephrosclerosis. 4. Hypertension maintained on angiotensin receptor blockers 5. History of urine retention status post Fisher catheter placement about 10 days ago. This will be replaced as patient continues to have urine retention after the catheter was removed yesterday. Plan: Repeat bladder scan and insert Fisher catheter if patient continues to have urine retention Check labs today Hold Cozaar if renal function is worse Encourage increased oral intake
[2022-04-02 11:15] LABS: African American GFR (CKD) 28 (>60 ml/min/1.73 sqM); Anion Gap 6 mmol/L; Blood Urea Nitrogen 52 mg/dL (7-17); Calcium 9.1 mg/dL (8.4-10.2); Carbon Dioxide 25 mmol/L (22-30); Chloride 102 mmol/L (98-107); Glucose 104 mg/dL (74-99); Non-African American GFR(CKD) 24 (>60 ml/min/1.73 sqM); Potassium 4.1 mmol/L (3.5-5.1); Sodium 133 mmol/L (137-145)
[2022-04-02] MEDS: ACETAMINOPHEN TAB 325 MG TAB PO PRN ×2 (11:15→20:26)
--- NOTE | 2022-04-02 12:09 | P.CONS ---
History of Present Illness - Chief Complaint Walking difficulty - History of Present Illness I had the opportunity see patient for inpatient rehab consultation with regard to walking difficulty. Patient initially seen at [facility] where computed tomography scan thorax and lumbar spine revealed T3 fracture. May have happened from fall 5 days earlier than [facility] admission March 30. Seen by Dr. brigitte jacques who prescribed TLSO at this time only. Seen by Dr. López for acute kidney injury and possible urinary retention. Diagnostic tests at [facility] include abdominal ultrasound. Chest x-ray cardiomegaly and possible atypical pneumonitis/Covid like. PT reports minimal assistance bed mobility, transfer, gait total 100 feet with roller walker. OT prescribed. Previous functional history as elicited from patient and : 87-year-old right-handed white female who is lives in a 2 floor duplex. generally does the cooking and driving and patient does the laundry. Patient dependent with sitdown shower and gait with [address] Benito. Review of Systems Review of systems: ENT: Denies sneezes or discharge. Eyes: Denies discharge or photophobia. Cardiac: Denies chest pain or palpitation. Pulmonary: Denies cough or shortness of breath. Breast: Denies discharge or lumps. Gastrointestinal: Denies nausea, emesis, constipation, diarrhea. Genitourinary: Denies discharge or frequency. Musculoskeletal: Mid back discomfort. Neurologic: At least mild generalized confusion which is normal for her. Endocrine: Denies shakes or sweats. Oncology: Denies cancers. Dermatologic: Denies rash, itching, pruritus. ALLERGY/immunology: Denies sneezes, rashes. Past Medical History Past Medical History: Asthma, CVA/TIA, Eye Disorder, GERD/Reflux, Hypertension, Osteoarthritis (OA), Pneumonia Additional Past Medical History / Comment(s): Osteoporosis, hx of TIA (? 2012), Stomach bleed - January 2014 (taken off coumadin). Hx of Diverticulitis, Chronic Asthma with Bronchitis, macular degeneration ronald, hx anemia, urinary leakage, c-diff 09/2017 History of Any Multi-Drug Resistant Organisms: None Reported Past Surgical History: Appendectomy, Bowel Resection, Cholecystectomy, Hysterectomy, Joint Replacement, Orthopedic Surgery, Tonsillectomy Additional Past Surgical History / Comment(s): sigmoid resection with colostomy and reversal. Left knee replacement, ronald ganglion cyst removal, R wrist plate ( repair of fx), ORIF right Hip, ronald cataracts, left wrist ORIF 2018 Past Anesthesia/Blood Transfusion Reactions: No Reported Reaction Past Psychological History: Anxiety Smoking Status: Former smoker Past Alcohol Use History: Daily Additional Past Alcohol Use History / Comment(s): QUIT SMOKING 35 YEARS AGO., SMOKED 2 PPD. started smoking age 18. DRINKS 2 GLASSES OF WINE DAILY. Past Drug Use History: None Reported - Past Family History Mother Family Medical History: Cancer Additional Family Medical History / Comment(s): COLON CANCER Brother(s) Family Medical History: Cancer Additional Family Medical History / Comment(s): LUNG CANCER Sister(s) Family Medical History: Cancer Additional Family Medical History / Comment(s): BREAST CANCER Medications and Allergies Home Medications Medication Instructions Recorded Confirmed Type ALPRAZolam [Xanax] 0.25 mg PO HS 09/10/16 03/30/22 History Citalopram Hydrobromide [CeleXA] 10 mg PO DAILY 09/10/16 03/30/22 History Vit C/E/Zn/Coppr/Lutein/Zeaxan 1 cap PO BID 12/20/17 03/30/22 History [Preservision Areds 2 Softgel] Atorvastatin [Lipitor] 20 mg PO HS 07/25/18 03/30/22 History Diphenoxylate HCl/Atropine 1 tab PO BID PRN 03/30/22 03/30/22 History [Lomotil 2.5-0.025 mg Tablet] Furosemide [Lasix] 40 mg PO DAILY 03/30/22 03/30/22 History Gabapentin [Neurontin] 100 mg PO TID 03/30/22 03/30/22 History Losartan Potassium 100 mg PO DAILY 03/30/22 03/30/22 History Metoprolol Succinate (ER) [Toprol 25 mg PO DAILY 03/30/22 03/30/22 History Xl] Multivitamin W/Calcium 1 tab PO DAILY 03/30/22 03/30/22 History amLODIPine [Norvasc] 10 mg PO DAILY 03/30/22 03/30/22 History predniSONE 5 mg PO DAILY 03/30/22 03/30/22 History Allergies Allergy/AdvReac Type Severity Reaction Status Date / Time perfume Allergy Unknown Dyspnea,COU Verified 01/03/23 19:35 GHING hydrocodone [From [place]] AdvReac Confusion Verified 03/31/22 13:17 oxycodone AdvReac Confusion Verified 03/31/22 13:17 unknown pain med AdvReac Confusion Uncoded 03/30/22 19:35 Physical Exam Vitals: Vital Signs Temp Pulse Resp BP BP Pulse Ox 04/02/22 06:51 53 L 16 116/63 96 04/02/22 02:00 97.5 F L 61 16 117/65 96 04/01/22 20:00 97.6 F 61 19 121/52 98 04/01/22 14:00 98 F 69 16 121/70 97 Intake and Output 04/01/22 04/02/22 04/02/22 22:59 06:59 14:59 Output Total 450 Balance -450 Output: Urine 450 Uretheral (Fisher) 450 Other: Voiding Method Toilet # Voids 1 1 Skin: Atrophic, intact. General: Medium build and comfortable appearance. Head: Normocephalic, atraumatic. Eyes: Symmetric. Pupils equal round. Ears: Symmetric. Hearing within normal limits. Mouth: Clear. Neck: Supple. Carotid without bruit. Cardiac: Regular rate and rhythm. Lungs: Clear anteriorly and posteriorly. Abdomen: Soft active nontender. Extremities: Normal tone. Neurological: Mental status: Alert, cooperative, pleasant. Cranial nerves: Symmetric facial tone and trapezius. Motor: Active movement both arms of at least antigravity. Legs at best antigravity, active movement ankles and toes. Sensation: Intact throughout. DTRs: Symmetric and equal throughout. Mobility: Patient in Neda chair with tray and food and did not attempt to sit or stand at this time. Results CBC & Chem 7: 03/31/22 05:39 04/02/22 10:32 Labs: Abnormal Lab Results - Last 24 Hours (Table) 04/01/22 04/02/22 Range/Units 18:00 10:32 Sodium 133 L (137-145) mmol/L BUN 52 H (7-17) mg/dL Creatinine 1.82 H (0.52-1.04) mg/dL Glucose 104 H (74-99) mg/dL Urine Appearance Cloudy H (Clear) Urine Protein Trace H (Negative) Ur Leukocyte Esterase Large H (Negative) Urine WBC 20 H (0-5) /hpf Urine Bacteria Moderate H (None) /hpf Hyaline Casts 14 H (0-2) /lpf Urine Mucus Rare H (None) /hpf Urine Yeast (Budding) Occasional H (None) /hpf Microbiology - Last 24 Hours (Table) 04/02/22 06:00 Urine Culture - Preliminary Urine,Catheterized Assessment and Plan (1) T3 vertebral fracture Current Visit: Yes Status: Acute Code(s): S22.039A - UNSP FRACTURE OF THIRD THORACIC VERTEBRA, INIT FOR CLOS FX SNOMED Code(s): 111111840 (2) CAD (coronary artery disease) Current Visit: No Status: Acute Code(s): I25.10 - ATHSCL HEART DISEASE OF [place] CORONARY ARTERY W/O ANG PCTRS SNOMED Code(s): 90957358 (3) Chronic cough Current Visit: No Status: Acute Code(s): R05 - COUGH * DO NOT USE * SNOMED Code(s): 07581775 Plan: Comments and plan: Diagnoses should also include mild confusion or dementia which is long-standing to patient. PT ongoing and OT pending. Patient and are both hopeful for therapy to not return to home within a few days. If this happens, would be over weekend. I will thus review patient progress, Tuesday a.m., if still in hospital
--- NOTE | 2022-04-02 20:10 | P.PN ---
Subjective Progress Note Date: 04/02/22 Principal diagnosis: Mechanical fall/debility Fracture T3 vertebra 87-year-old female, history of hypertension, asthma, osteoarthritis, CVA/TIA, presenting to the emergency department at [facility] after fall and back pain. Patient was seen at [facility] and workup revealed a T3 fracture; patient was transferred to our facility for higher level of care. Patient did have a fall 5 days ago and has been having upper back discomfort since that time. Patient did have computed tomography scan done showing T3 fracture. Patient was transferred here. Patient is having some discomfort still. Patient did receive pain medication and states that did improve her symptoms. Patient has been evaluated by orthopedic surgery -CT of the Thoracic performed at [facility], awaiting those films to be uploaded for review -Continue with pain management -TLSO brace prescription has been placed in chart, patient to wear when up and about, may take break when in chair, remove for showers -PT/OT WBAT 04/02/2022 Patient is seen and evaluated resting; patient reports she has been up in bedside chair for most of the day Vital signs are reviewed and stable Patient has been evaluated by IP are and recommending to proceed with PT/OT evaluation with plans to evaluate patient on Tuesday to determine eligibility for admission to [facility] Objective - Vital Signs Vital signs: Vital Signs Temp 97.5 F L 04/02/22 02:00 Pulse 53 L 04/02/22 06:51 Resp 16 04/02/22 06:51 BP 116/63 04/02/22 06:51 Pulse Ox 96 04/02/22 06:51 FiO2 Intake & Output 04/01/22 04/02/22 04/02/22 18:59 06:59 18:59 Intake Total 240 Output Total 450 Balance 240 -450 Intake: Oral 240 Output: Urine 450 Uretheral (Fisher) 450 Other: Voiding Method Toilet Toilet # Voids 1 1 - Exam GENERAL: The patient is alert and oriented x3, not in any acute distress. Well developed, well nourished. HEENT: Pupils are round and equally reacting to light. EOMI. No scleral icterus. No conjunctival pallor. Normocephalic, atraumatic. No pharyngeal erythema. No thyromegaly. CARDIOVASCULAR: S1 and S2 present. No murmurs, rubs, or gallops. PULMONARY: Chest is clear to auscultation, no wheezing or crackles. ABDOMEN: Soft, nontender, nondistended, normoactive bowel sounds. No palpable organomegaly. MUSCULOSKELETAL: Mild tenderness mid thoracic spine. EXTREMITIES: No cyanosis, clubbing, or pedal edema. NEUROLOGICAL: Gross neurological examination did not reveal any focal deficits. SKIN: No rashes. - Labs CBC & Chem 7: 03/31/22 05:39 04/02/22 10:32 Labs: Abnormal Lab Results - Last 24 Hours (Table) 04/01/22 04/02/22 Range/Units 18:00 10:32 Sodium 133 L (137-145) mmol/L BUN 52 H (7-17) mg/dL Creatinine 1.82 H (0.52-1.04) mg/dL Glucose 104 H (74-99) mg/dL Urine Appearance Cloudy H (Clear) Urine Protein Trace H (Negative) Ur Leukocyte Esterase Large H (Negative) Urine WBC 20 H (0-5) /hpf Urine Bacteria Moderate H (None) /hpf Hyaline Casts 14 H (0-2) /lpf Urine Mucus Rare H (None) /hpf Urine Yeast (Budding) Occasional H (None) /hpf Microbiology - Last 24 Hours (Table) 04/02/22 06:00 Urine Culture - Preliminary Urine,Catheterized Assessment and Plan Assessment: 1. Mechanical fall/debility; patient does have history of osteoarthritis and osteoporosis; we will consult PT/OT for evaluation and further treatment 2. Fracture T3 vertebra; patient does have history of previous T5 compression fracture likely related to history of osteoporosis 3. Hypertension; amlodipine 10 mg daily, losartan 100 mg daily and metoprolol 25 mg daily 4. Asthma; not in exacerbation; we will resume home inhaler therapy 5. History of osteoarthritis; Tylenol 650 mg every 6 hours when necessary 6. Gastroesophageal reflux disease; Protonix 40 mg daily 7. Depression/anxiety; Celexa 10 mg daily along with Xanax 0.5 daily at bedtime DVT prophylaxis; SCDs/subcu Lovenox CODE STATUS; full code
[2022-04-02] MEDS: ALPRAZolam 0.25 MG TAB PO SCH (20:26)
[2022-04-02] MEDS: ATORVASTATIN 20 MG TAB PO SCH (20:26)
[2022-04-03] MEDS: MULTIVITAMINS, THERA 1 EACH TAB PO SCH (09:12)
[2022-04-03] MEDS: predniSONE 5 MG TAB PO SCH (09:12)
[2022-04-03] MEDS: CITALOPRAM HYDROBROMIDE 10 MG TAB PO SCH (09:12)
[2022-04-03] MEDS: GABAPENTIN 100 MG CAP PO SCH ×3 (09:12→21:41)
[2022-04-03] MEDS: METOPROLOL SUCCINATE (ER) 25 MG TAB.ER.24H PO SCH (09:12)
--- NOTE | 2022-04-03 11:27 | P.PN ---
Subjective Patient is seen in follow-up for acute kidney injury on chronic kidney disease. Blood pressure stable. On 2 L as a cannula. Oral intake fair. Has been voiding. Denies chest pain or shortness of breath. No vomiting or diarrhea. Vital signs are stable. General: Awake. No acute distress. HEENT: Head exam is unremarkable. LUNGS: Breath sounds decreased. HEART: Rate and Rhythm are regular. ABDOMEN: Soft, no distention. EXTREMITITES: No edema. Objective - Vital Signs Vital signs: Vital Signs Temp 97.9 F 04/03/22 07:15 Pulse 61 04/03/22 07:15 Resp 16 04/03/22 07:15 BP 131/57 04/03/22 07:15 Pulse Ox 98 04/03/22 07:15 FiO2 Intake & Output 04/02/22 04/03/22 04/03/22 18:59 06:59 18:59 Output Total 210 400 Balance -210 -400 Output: Urine 210 400 Other: Voiding Method Toilet # Voids 1 - Labs CBC & Chem 7: 03/31/22 05:39 04/02/22 10:32 Labs: Microbiology - Last 24 Hours (Table) 04/02/22 06:00 Urine Culture - Preliminary Urine,Catheterized Assessment and Plan Plan: Assessment: 1. Acute kidney injury secondary to urinary retention and further worsened with the use of Cozaar. Creatinine 1.4 on admission and was up to 1.2 yesterday. No hydronephrosis noted on ultrasound. Left kidney noted to be atrophic. 2. Chronic kidney disease stage IIIa with creatinine in the range of 1.1-1.3 in July 2018 and September 2019. Etiology is nephrosclerosis and atrophic left kidney. 3. Hypertension with chronic kidney disease. 4. Urinary retention. Fisher catheter removed. 5. Status post fall with T3 vertebral fracture. Plan: Encourage oral intake. Continue to hold losartan. Avoid nephrotoxins. Continue to monitor renal function and urine output.
[2022-04-03] MEDS: ACETAMINOPHEN TAB 325 MG TAB PO PRN (11:47)
[2022-04-03] MEDS: ALPRAZolam 0.25 MG TAB PO SCH (21:41)
[2022-04-03] MEDS: ATORVASTATIN 20 MG TAB PO SCH (21:41)
[2022-04-04] MEDS: ACETAMINOPHEN TAB 325 MG TAB PO PRN (08:30)
[2022-04-04] MEDS: CITALOPRAM HYDROBROMIDE 10 MG TAB PO SCH (09:24)
[2022-04-04] MEDS: MULTIVITAMINS, THERA 1 EACH TAB PO SCH (09:24)
[2022-04-04] MEDS: GABAPENTIN 100 MG CAP PO SCH ×3 (09:24→21:49)
[2022-04-04] MEDS: METOPROLOL SUCCINATE (ER) 25 MG TAB.ER.24H PO SCH (09:24)
[2022-04-04] MEDS: predniSONE 5 MG TAB PO SCH (09:25)
[2022-04-04 10:17] LABS: Magnesium 2.3 mg/dL (1.5-2.4)
[2022-04-04 10:21] LABS: African American GFR (CKD) 35.2 (60.0-200.0); Anion Gap 10.4 mmol/L (10.00-18.00); BUN/Creat Ratio 27.28 Ratio (12.00-20.00); Blood Urea Nitrogen 41.2 mg/dL (9.0-27.0); Carbon Dioxide 26.2 mmol/L (20.0-27.5); Non-African American GFR(CKD) 30.3 (60.0-200.0); Potassium 4.4 mmol/L (3.5-5.5)
[2022-04-04] MEDS ORDERED: amLODIPine 5 MG TAB PO SCH (11:15)
--- NOTE | 2022-04-04 11:15 | P.PN ---
Subjective Patient is seen in follow-up for acute kidney injury on chronic kidney disease. Blood pressure on the higher side. On 2 L as a cannula. Oral intake fair. Has been voiding. Denies chest pain or shortness of breath. No vomiting or diarrhea. Vital signs are stable. General: Awake. No acute distress. HEENT: Head exam is unremarkable. LUNGS: Breath sounds decreased. HEART: Rate and Rhythm are regular. ABDOMEN: Soft, no distention. EXTREMITITES: No edema. Objective - Vital Signs Vital signs: Vital Signs Temp 98.3 F 04/04/22 07:46 Pulse 61 04/04/22 07:46 Resp 16 04/04/22 07:46 BP 169/62 04/04/22 07:46 Pulse Ox 96 04/04/22 08:08 FiO2 Intake & Output 04/03/22 04/04/22 04/04/22 18:59 06:59 18:59 Output Total 400 Balance -400 Output: Urine 400 Other: Voiding Method Toilet Toilet Toilet # Voids 1 3 - Labs CBC & Chem 7: 03/31/22 05:39 04/04/22 05:56 Labs: Abnormal Lab Results - Last 24 Hours (Table) 04/04/22 Range/Units 05:56 BUN 41.2 H (9.0-27.0) mg/dL Est GFR (CKD-EPI)AfAm 35.2 L (60.0-200.0) Est GFR (CKD-EPI)NonAf 30.3 L (60.0-200.0) BUN/Creatinine Ratio 27.28 H (12.00-20.00) Ratio Microbiology - Last 24 Hours (Table) 04/02/22 06:00 Urine Culture - Final Urine,Catheterized Assessment and Plan Plan: Assessment: 1. Acute kidney injury secondary to urinary retention and further worsened with the use of Cozaar. Creatinine 1.4 on admission and peaked at 1.8 to on 04/02/2022 - 1.5 today. No hydronephrosis noted on ultrasound. Left kidney noted to be atrophic. 2. Chronic kidney disease stage IIIa with creatinine in the range of 1.1-1.3 in July 2018 and September 2019. Etiology is nephrosclerosis and atrophic left kidney. 3. Hypertension with chronic kidney disease. 4. Urinary retention. Fisher catheter removed. 5. Status post fall with T3 vertebral fracture. Plan: Encourage oral intake. Continue to hold losartan. Add amlodipine 5 mg once daily. Avoid nephrotoxins. Continue to monitor renal function and urine output. Follow-up outpatient in 1-2 weeks postdischarge.
[2022-04-04] MEDS: hydrALAZINE HCL 25 MG TAB PO SCH (13:39)
--- NOTE | 2022-04-04 16:35 | P.PN ---
Subjective Progress Note Date: 04/03/22 Principal diagnosis: Mechanical fall/debility Fracture T3 vertebra 87-year-old female, history of hypertension, asthma, osteoarthritis, CVA/TIA, [place] [facility] [place] pain. [place] [facility] [place] workup revealed a T3 fracture; patient was transferred to our facility for higher level of care. Patient did have a fall 5 days ago and has been having upper back discomfort since that time. Patient did have computed tomography scan done showing T3 fracture. Patient was transferred here. Patient is having some discomfort still. Patient did receive pain medication and states that did improve her symptoms. Patient has been evaluated by orthopedic surgery -CT of the Thoracic performed at [facility], awaiting those films to be uploaded for review -Continue with pain management -TLSO brace prescription has been placed in chart, patient to wear when up and about, may take break when in chair, remove for showers -PT/OT WBAT 04/03/2022 Patient is seen and evaluated resting; patient reports she has been up in bedside chair for most of the day Vital signs are reviewed temperature of 98.1, pulse 61, respiratory 16 and blood pressure 126/61 O2 saturation of 95% on 2 L Laboratory review from yesterday reveals sodium 133, potassium of 4.1, BUN/creatinine of 52/1.82 Patient has been evaluated by IP are and recommending to proceed with PT/OT evaluation with plans to evaluate patient on Tuesday to determine eligibility for admission to [facility] Objective - Vital Signs Vital signs: Vital Signs Temp 97.9 F 04/03/22 07:15 Pulse 61 04/03/22 07:15 Resp 16 04/03/22 07:15 BP 131/57 04/03/22 07:15 Pulse Ox 98 04/03/22 07:15 FiO2 Intake & Output 04/02/22 04/03/22 04/03/22 18:59 06:59 18:59 Output Total 210 400 Balance -210 -400 Output: Urine 210 400 Other: Voiding Method Toilet Toilet # Voids 1 - Exam GENERAL: The patient is alert and oriented x3, not in any acute distress. Well developed, well nourished. HEENT: Pupils are round and equally reacting to light. EOMI. No scleral icterus. No conjunctival pallor. Normocephalic, atraumatic. No pharyngeal erythema. No thyromegaly. CARDIOVASCULAR: S1 and S2 present. No murmurs, rubs, or gallops. PULMONARY: Chest is clear to auscultation, no wheezing or crackles. ABDOMEN: Soft, nontender, nondistended, normoactive bowel sounds. No palpable organomegaly. MUSCULOSKELETAL: Mild tenderness mid thoracic spine. EXTREMITIES: No cyanosis, clubbing, or pedal edema. NEUROLOGICAL: Gross neurological examination did not reveal any focal deficits. SKIN: No rashes. - Labs CBC & Chem 7: 03/31/22 05:39 04/04/22 05:56 Labs: Microbiology - Last 24 Hours (Table) 04/02/22 06:00 Urine Culture - Final Urine,Catheterized Assessment and Plan Assessment: 1. Mechanical fall/debility; patient does have history of osteoarthritis and o steoporosis; we will consult PT/OT for evaluation and further treatment 2. Fracture T3 vertebra; patient does have history of previous T5 compression fracture likely related to history of osteoporosis 3. Hypertension; amlodipine 10 mg daily, losartan 100 mg daily and metoprolol 25 mg daily 4. Asthma; not in exacerbation; we will resume home inhaler therapy 5. History of osteoarthritis; Tylenol 650 mg every 6 hours when necessary 6. Gastroesophageal reflux disease; Protonix 40 mg daily 7. Depression/anxiety; Celexa 10 mg daily along with Xanax 0.5 daily at bedtime DVT prophylaxis; SCDs/subcu Lovenox CODE STATUS; full code
--- NOTE | 2022-04-04 16:38 | P.PN ---
Subjective Progress Note Date: 04/04/22 Principal diagnosis: Mechanical fall/debility Fracture T3 vertebra 87-year-old female, history of hypertension, asthma, osteoarthritis, CVA/TIA, presenting to the emergency department at [facility] after fall and back pain. Patient was seen at [facility] and workup revealed a T3 fracture; patient was transferred to our facility for higher level of care. Patient did have a fall 5 days ago and has been having upper back discomfort since that time. Patient did have computed tomography scan done showing T3 fracture. Patient was transferred here. Patient is having some discomfort still. Patient did receive pain medication and states that did improve her symptoms. Patient has been evaluated by orthopedic surgery -CT of the Thoracic performed at [facility], awaiting those films to be uploaded for review -Continue with pain management -TLSO brace prescription has been placed in chart, patient to wear when up and about, may take break when in chair, remove for showers -PT/OT WBAT 04/04/2022 Patient is seen and evaluated sitting up in bedside chair; patient reports she has been up in bedside chair for most of the day; reports relatively more stiffening of the back compared to yesterday Vital signs are reviewed temperature of 98.1, pulse 61, respiratory 16 and blood pressure 126/61 O2 saturation of 95% on 2 L Laboratory review from yesterday reveals sodium 140, potassium 4.4, B UN/creatinine of 41.2/1.5 which is improved from 52/1.8 yesterday Patient has been evaluated by PT/OT and is recommended inpatient rehab versus subacute rehab which will home with 2/7 supervision evaluation with plans for PMR to re-evaluate patient on Tuesday to determine eligibility for admission to [facility] Objective - Vital Signs Vital signs: Vital Signs Temp 98.3 F 04/04/22 07:46 Pulse 61 04/04/22 07:46 Resp 16 04/04/22 07:46 BP 169/62 04/04/22 07:46 Pulse Ox 96 04/04/22 08:08 FiO2 Intake & Output 04/03/22 04/04/22 04/04/22 18:59 06:59 18:59 Output Total 400 Balance -400 Output: Urine 400 Other: Voiding Method Toilet Toilet Toilet # Voids 1 3 - Exam GENERAL: The patient is alert and oriented x3, not in any acute distress. Well developed, well nourished. HEENT: Pupils are round and equally reacting to light. EOMI. No scleral icterus. No conjunctival pallor. Normocephalic, atraumatic. No pharyngeal erythema. No thyromegaly. CARDIOVASCULAR: S1 and S2 present. No murmurs, rubs, or gallops. PULMONARY: Chest is clear to auscultation, no wheezing or crackles. ABDOMEN: Soft, nontender, nondistended, normoactive bowel sounds. No palpable organomegaly. MUSCULOSKELETAL: Mild tenderness mid thoracic spine. EXTREMITIES: No cyanosis, clubbing, or pedal edema. NEUROLOGICAL: Gross neurological examination did not reveal any focal deficits. SKIN: No rashes. - Labs CBC & Chem 7: 03/31/22 05:39 04/04/22 05:56 Labs: Abnormal Lab Results - Last 24 Hours (Table) 04/04/22 Range/Units 05:56 BUN 41.2 H (9.0-27.0) mg/dL Est GFR (CKD-EPI)AfAm 35.2 L (60.0-200.0) Est GFR (CKD-EPI)NonAf 30.3 L (60.0-200.0) BUN/Creatinine Ratio 27.28 H (12.00-20.00) Ratio Microbiology - Last 24 Hours (Table) 04/02/22 06:00 Urine Culture - Final Urine,Catheterized Assessment and Plan Assessment: 1. Mechanical fall/debility; patient does have history of osteoarthritis and osteoporosis; we will consult PT/OT for evaluation and further treatment 2. Fracture T3 vertebra; patient does have history of previous T5 compression fracture likely related to history of osteoporosis 3. Hypertension; amlodipine 10 mg daily, losartan 100 mg daily and metoprolol 25 mg daily 4. Asthma; not in exacerbation; we will resume home inhaler therapy 5. History of osteoarthritis; Tylenol 650 mg every 6 hours when necessary 6. Gastroesophageal reflux disease; Protonix 40 mg daily 7. Depression/anxiety; Celexa 10 mg daily along with Xanax 0.5 daily at bedtime DVT prophylaxis; SCDs/subcu Lovenox CODE STATUS; full code
[2022-04-04] MEDS: ALPRAZolam 0.25 MG TAB PO SCH (21:49)
[2022-04-04] MEDS: ATORVASTATIN 20 MG TAB PO SCH (21:49)
[2022-04-05] MEDS: ACETAMINOPHEN TAB 325 MG TAB PO PRN (04:33)
[2022-04-05] MEDS: hydrALAZINE HCL 25 MG TAB PO SCH ×3 (09:57→22:06)
[2022-04-05] MEDS: METOPROLOL SUCCINATE (ER) 25 MG TAB.ER.24H PO SCH (09:57)
[2022-04-05] MEDS: MULTIVITAMINS, THERA 1 EACH TAB PO SCH (09:57)
[2022-04-05] MEDS: GABAPENTIN 100 MG CAP PO SCH ×3 (09:57→22:06)
[2022-04-05] MEDS: CITALOPRAM HYDROBROMIDE 10 MG TAB PO SCH (09:57)
[2022-04-05] MEDS: predniSONE 5 MG TAB PO SCH (09:57)
--- NOTE | 2022-04-05 11:24 | P.PN ---
Subjective Patient is seen in follow-up for acute kidney injury on chronic kidney disease. Blood pressure on the higher side. On 2 L room air. Oral intake fair. Has been voiding. Denies chest pain or shortness of breath. No vomiting or diarrhea. Vital signs are stable. General: Awake. No acute distress. HEENT: Head exam is unremarkable. LUNGS: Breath sounds decreased. HEART: Rate and Rhythm are regular. ABDOMEN: Soft, no distention. EXTREMITITES: No edema. Objective - Vital Signs Vital signs: Vital Signs Temp 97.4 F L 04/05/22 07:10 Pulse 63 04/05/22 07:10 Resp 17 04/05/22 07:10 BP 193/69 04/05/22 07:10 Pulse Ox 93 L 04/05/22 07:55 FiO2 Intake & Output 04/04/22 04/05/22 04/05/22 18:59 06:59 18:59 Other: Voiding Method Toilet Toilet # Voids 2 3 # Bowel Movements 1 - Labs CBC & Chem 7: 03/31/22 05:39 04/04/22 05:56 Assessment and Plan Plan: Assessment: 1. Acute kidney injury secondary to urinary retention and further worsened with the use of Cozaar. Creatinine 1.4 on admission and peaked at 1.8 to on 04/02/2022 - 1.5 yesterday. No hydronephrosis noted on ultrasound. Left kidney noted to be atrophic. 2. Chronic kidney disease stage IIIa with creatinine in the range of 1.1-1.3 in July 2018 and September 2019. Etiology is nephrosclerosis and atrophic left kidney. 3. Hypertension with chronic kidney disease. 4. Urinary retention. Fisher catheter removed. 5. Status post fall with T3 vertebral fracture. Plan: Encourage oral intake. Continue to hold losartan. Increase hydralazine frequency to 3 times a day. Hold for systolic blood pressure less than 125. Patient unable to tolerate amlodipine due to edema. Avoid nephrotoxins. Continue to monitor renal function and urine output. Follow-up outpatient in 1-2 weeks postdischarge.
--- NOTE | 2022-04-05 12:11 | P.PN ---
Subjective 87-year-old female, history of hypertension, asthma, osteoarthritis, CVA/TIA, presenting to the emergency department at [facility] after fall and back pain. Patient was seen at [facility] and workup revealed a T3 fracture; patient was transferred to our facility for higher level of care. Patient did have a fall 5 days ago and has been having upper back discomfort since that time. Patient did have computed tomography scan done showing T3 fracture. Patient was transferred here. Patient is having some discomfort still. Patient did receive pain medication and states that did improve her symptoms. Patient has been evaluated by orthopedic surgery -CT of the Thoracic performed at [facility], awaiting those films to be uploaded for review -Continue with pain management -TLSO brace prescription has been placed in chart, patient to wear when up and about, may take break when in chair, remove for showers -PT/OT WBAT 04/01/2022 This is a pleasant 87 years old female who presents with back pain after she fell home 5 days ago and found to have T3 fracture, patient was transferred from [facility], orthopedic team recommended TLSO brace which is at bedside, patient wear about and willing to use it when she is up out of bed as she was informed. Also her pain was controlled. She still feels generally weak, PT/OT is consulted Her creatinine went up 1.4 up to 1.6, hold oral Lasix and consult dental laboratory technician apprentice On admission she has some irritation 311, Fisher catheter was placed despite this creatinine went up, we will discontinue Fisher catheter and keep checking bladder scan 48 hours Other than that she is awake alert, lying in bed denies any weakness or numbness or dizziness. CAT scan of the abdomen and pelvis at [facility], no dilated ducts fibrotic changes, atelectasis to right lung base Also patient on prednisone 5 mg and she does not know why. Patient says she is not on home oxygen We will check chest x-ray Resume the care of the patient from 04/05/2022 Patient is fully awake and oriented, much better than when I saw her a few days ago, her mentation is back to baseline. She denies any other symptoms other than generalized weakness which is gradually improving. She complains from middle back pain of the fracture site. We will add lidocaine patch. Brace is at bedside and patient was counseled and she agrees. Patient denies any urinary Symptoms and she finished antibiotic treatment and ceftriaxone, stopped. Urine culture is negative patient could be considered for discharge once authorization is obtained Objective - Vital Signs Vital signs: Vital Signs Temp 97.4 F L 04/05/22 07:10 Pulse 63 04/05/22 07:10 Resp 17 04/05/22 07:10 BP 193/69 04/05/22 07:10 Pulse Ox 93 L 04/05/22 07:55 FiO2 Intake & Output 04/04/22 04/05/22 04/05/22 18:59 06:59 18:59 Other: Voiding Method Toilet Toilet Toilet # Voids 2 3 # Bowel Movements 1 - Exam -GENERAL: The patient is alert and oriented x3, not in any acute distress. Well developed, well nourished. Generally weak HEENT: Pupils are round and equally reacting to light. EOMI. No scleral icterus. No conjunctival pallor. Normocephalic, atraumatic. No pharyngeal erythema. No thyromegaly. CARDIOVASCULAR: S1 and S2 present. No murmurs, rubs, or gallops. PULMONARY: Chest is clear to auscultation, no wheezing or crackles. -ABDOMEN: Soft, nontender, nondistended, normoactive bowel sounds. No palpable organomegaly. Fisher catheter in place MUSCULOSKELETAL: No joint swelling or deformity. EXTREMITIES: No cyanosis, clubbing, or pedal edema. NEUROLOGICAL: Gross neurological examination did not reveal any focal deficits. SKIN: No rashes. no petechiae. - Labs CBC & Chem 7: 03/31/22 05:39 04/04/22 05:56 Assessment and Plan Assessment: 1. Mechanical fall/debility; patient does have history of osteoarthritis and osteoporosis; we will consult PT/OT for evaluation and further treatment. Patient will benefit from rehab 2. Fracture T3 vertebra; patient does have history of previous T5 compression fracture likely related to history of osteoporosis. Orthopedic team signed off the case. TLSO brace at bedside 3. Acute kidney injury, hold Lasix, consult dental laboratory technician apprentice. Discontinue Fisher catheter check, hold LOSARTAN. Improved 4. Asthma; not in exacerbation; we will resume home inhaler therapy 5. History of osteoarthritis; Tylenol 650 mg every 6 hours when necessary 6. Gastroesophageal reflux disease; Protonix 40 mg daily 7. Depression/anxiety; Celexa 10 mg daily along with Xanax 0.5 daily at bedtime 8. Hypertension; DC amlodipine 10 mg daily, DC losartan 100 mg daily. Continue with metoprolol 25 mg daily. Hydralazine 25 twice a day DVT prophylaxis; SCDs/subcu Lovenox CODE STATUS; full code
[2022-04-05] MEDS: LIDOCAINE 5% PATCH TOPICAL SCH (17:05)
[2022-04-05] MEDS: ALPRAZolam 0.25 MG TAB PO SCH (22:06)
[2022-04-05] MEDS: ATORVASTATIN 20 MG TAB PO SCH (22:06)
[2022-04-06] MEDS: ACETAMINOPHEN TAB 325 MG TAB PO PRN (06:11)
[2022-04-06] MEDS: METOPROLOL SUCCINATE (ER) 25 MG TAB.ER.24H PO SCH (08:46)
[2022-04-06] MEDS: GABAPENTIN 100 MG CAP PO SCH ×3 (08:46→21:01)
[2022-04-06] MEDS: predniSONE 5 MG TAB PO SCH (08:46)
[2022-04-06] MEDS: MULTIVITAMINS, THERA 1 EACH TAB PO SCH (08:46)
[2022-04-06] MEDS: LIDOCAINE 5% PATCH TOPICAL SCH (08:46)
[2022-04-06] MEDS: hydrALAZINE HCL 25 MG TAB PO SCH (08:46)
[2022-04-06] MEDS: CITALOPRAM HYDROBROMIDE 10 MG TAB PO SCH (08:46)
--- NOTE | 2022-04-06 11:07 | P.PN ---
Subjective Patient is seen in follow-up for acute kidney injury on chronic kidney disease. Blood pressure high this morning. On room air. Oral intake fair. Has been voiding. Denies chest pain or shortness of breath. No vomiting or diarrhea. Vital signs are stable. General: Awake. No acute distress. HEENT: Head exam is unremarkable. LUNGS: Breath sounds decreased. HEART: Rate and Rhythm are regular. ABDOMEN: Soft, no distention. EXTREMITITES: No edema. Objective - Vital Signs Vital signs: Vital Signs Temp 97.9 F 04/06/22 07:03 Pulse 62 04/06/22 07:03 Resp 19 04/06/22 07:03 BP 195/68 04/06/22 07:03 Pulse Ox 94 L 04/06/22 07:03 FiO2 Intake & Output 04/05/22 04/06/22 04/06/22 18:59 06:59 18:59 Other: Voiding Method Toilet Toilet # Voids 3 1 - Labs CBC & Chem 7: 03/31/22 05:39 04/04/22 05:56 Assessment and Plan Plan: Assessment: 1. Acute kidney injury secondary to urinary retention and further worsened with the use of Cozaar. Creatinine 1.4 on admission and peaked at 1.8 to on 04/02/2022 - 1.5 dated 04/04/2022. No hydronephrosis noted on ultrasound. Left kidney noted to be atrophic. 2. Chronic kidney disease stage IIIa with creatinine in the range of 1.1-1.3 in July 2018 and September 2019. Etiology is nephrosclerosis and atrophic left kidney. 3. Hypertension with chronic kidney disease. 4. Urinary retention. Fisher catheter removed. 5. Status post fall with T3 vertebral fracture. Plan: Encourage oral intake. Continue to hold losartan. Patient unable to tolerate amlodipine due to edema. Increase dose of hydralazine. Hold for systolic blood pressure less than 125. Avoid nephrotoxins. Continue to monitor renal function and urine output. Follow-up outpatient in 1-2 weeks postdischarge.
[2022-04-06 11:33] VITALS: BMI 24.4
--- NOTE | 2022-04-06 12:22 | P.PN ---
Subjective 87-year-old female, history of hypertension, asthma, osteoarthritis, CVA/TIA, presenting to the emergency department at [facility] after fall and back pain. Patient was seen at [facility] and workup revealed a T3 fracture; patient was transferred to our facility for higher level of care. Patient did have a fall 5 days ago and has been having upper back discomfort since that time. Patient did have computed tomography scan done showing T3 fracture. Patient was transferred here. Patient is having some discomfort still. Patient did receive pain medication and states that did improve her symptoms. Patient has been evaluated by orthopedic surgery -CT of the Thoracic performed at [facility], awaiting those films to be uploaded for review -Continue with pain management -TLSO brace prescription has been placed in chart, patient to wear when up and about, may take break when in chair, remove for showers -PT/OT WBAT 04/01/2022 This is a pleasant 87 years old female who presents with back pain after she fell home 5 days ago and found to have T3 fracture, patient was transferred from [facility], orthopedic team recommended TLSO brace which is at bedside, patient wear about and willing to use it when she is up out of bed as she was informed. Also her pain was controlled. She still feels generally weak, PT/OT is consulted Her creatinine went up 1.4 up to 1.6, hold oral Lasix and consult dispatcher chief oil On admission she has some irritation 311, Fisher catheter was placed despite this creatinine went up, we will discontinue Fisher catheter and keep checking bladder scan 48 hours Other than that she is awake alert, lying in bed denies any weakness or numbness or dizziness. CAT scan of the abdomen and pelvis at [facility], no dilated ducts fibrotic changes, atelectasis to right lung base Also patient on prednisone 5 mg and she does not know why. Patient says she is not on home oxygen We will check chest x-ray Resume the care of the patient from 04/05/2022 Patient is fully awake and oriented, much better than when I saw her a few days ago, her mentation is back to baseline. She denies any other symptoms other than generalized weakness which is gradually improving. She complains from middle back pain of the fracture site. We will add lidocaine patch. Brace is at bedside and patient was counseled and she agrees. Patient denies any urinary Symptoms and she finished antibiotic treatment and ceftriaxone, stopped. Urine culture is negative patient could be considered for discharge once authorization is obtained 04/06/2022 No new pain. She has pain in her middle back of the fracture site, patient was walking without her brace this morning. Patient was counseled about the importance of using her brace when she is up or walking and she verbalized understanding and acceptance Patient will continue the bathroom using her walker blood pressure is still elevated, hydralazine increased 25 up to 50 mg. Patient medically stable for discharge pending placement, discussed with social insurance analyst Stop losartan. Objective - Vital Signs Vital signs: Vital Signs Temp 97.9 F 04/06/22 07:03 Pulse 62 04/06/22 07:03 Resp 19 04/06/22 07:03 BP 195/68 04/06/22 07:03 Pulse Ox 94 L 04/06/22 07:03 FiO2 Intake & Output 04/05/22 04/06/22 04/06/22 18:59 06:59 18:59 Weight 56.699 kg Other: Voiding Method Toilet Toilet # Voids 3 1 - Exam -GENERAL: The patient is alert and oriented x3, not in any acute distress. Well developed, well nourished. Generally weak HEENT: Pupils are round and equally reacting to light. EOMI. No scleral icterus. No conjunctival pallor. Normocephalic, atraumatic. No pharyngeal erythema. No thyromegaly. CARDIOVASCULAR: S1 and S2 present. No murmurs, rubs, or gallops. PULMONARY: Chest is clear to auscultation, no wheezing or crackles. -ABDOMEN: Soft, nontender, nondistended, normoactive bowel sounds. No palpable organomegaly. Fisher catheter in place MUSCULOSKELETAL: No joint swelling or deformity. EXTREMITIES: No cyanosis, clubbing, or pedal edema. NEUROLOGICAL: Gross neurological examination did not reveal any focal deficits. SKIN: No rashes. no petechiae. - Labs CBC & Chem 7: 03/31/22 05:39 04/04/22 05:56 Assessment and Plan Assessment: 1. Mechanical fall/debility; patient does have history of osteoarthritis and osteoporosis; we will consult PT/OT for evaluation and further treatment. Patient will benefit from rehab 2. Fracture T3 vertebra; patient does have history of previous T5 compression fracture likely related to history of osteoporosis. Orthopedic team signed off the case. TLSO brace at bedside 3. Acute kidney injury, hold Lasix, consult dispatcher chief oil. Discontinue Fisher catheter check, hold LOSARTAN. Improved 4. Asthma; not in exacerbation; we will resume home inhaler therapy 5. History of osteoarthritis; Tylenol 650 mg every 6 hours when necessary 6. Gastroesophageal reflux disease; Protonix 40 mg daily 7. Depression/anxiety; Celexa 10 mg daily along with Xanax 0.5 daily at bedtime 8. Hypertension; DC amlodipine 10 mg daily, DC losartan 100 mg daily. Continue with metoprolol 25 mg daily. Hydralazine 25 twice a day DVT prophylaxis; SCDs/subcu Lovenox CODE STATUS; full code Pending placement
[2022-04-06] MEDS: hydrALAZINE HCL 50 MG TAB PO SCH ×2 (17:46→21:01)
[2022-04-06] MEDS: ATORVASTATIN 20 MG TAB PO SCH (21:01)
[2022-04-06] MEDS: ALPRAZolam 0.25 MG TAB PO SCH (21:01)
[2022-04-07 05:02] VITALS: TEMP 97.7
[2022-04-07 07:53] VITALS: BP 160/68; PULSE 60
[2022-04-07] MEDS: LIDOCAINE 5% PATCH TOPICAL SCH (09:36)
[2022-04-07] MEDS: MULTIVITAMINS, THERA 1 EACH TAB PO SCH (09:37)
[2022-04-07] MEDS: GABAPENTIN 100 MG CAP PO SCH (09:37)
[2022-04-07] MEDS: hydrALAZINE HCL 50 MG TAB PO SCH (09:37)
[2022-04-07] MEDS: METOPROLOL SUCCINATE (ER) 25 MG TAB.ER.24H PO SCH (09:37)
[2022-04-07] MEDS: CITALOPRAM HYDROBROMIDE 10 MG TAB PO SCH (09:38)
[2022-04-07] MEDS: predniSONE 5 MG TAB PO SCH (09:38)
[2022-04-07 10:04] VITALS: RESP 18
--- NOTE | 2022-04-07 11:25 | P.PN ---
Subjective Patient is seen in follow-up for acute kidney injury on chronic kidney disease. Renal function improved with creatinine 1.5 dated 04/04/2022. On room air. Oral intake fair. Has been voiding. Denies chest pain or shortness of breath. No vomiting or diarrhea. No active complaints. Vital signs are stable. General: Awake. No acute distress. HEENT: Head exam is unremarkable. LUNGS: Breath sounds decreased. HEART: Rate and Rhythm are regular. ABDOMEN: Soft, no distention. EXTREMITITES: No edema. Objective - Vital Signs Vital signs: Vital Signs Temp 97.7 F 04/07/22 06:54 Pulse 60 04/07/22 06:54 Resp 18 04/07/22 10:02 BP 160/68 04/07/22 06:54 Pulse Ox 96 04/07/22 07:13 FiO2 Intake & Output 04/06/22 04/07/22 04/07/22 18:59 06:59 18:59 Weight 56.699 kg Other: Voiding Method Toilet Toilet # Voids 5 1 - Labs CBC & Chem 7: 03/31/22 05:39 04/04/22 05:56 Assessment and Plan Plan: Assessment: 1. Acute kidney injury secondary to urinary retention and further worsened with the use of Cozaar. Creatinine 1.4 on admission and peaked at 1.8 to on 04/02/2022 - 1.5 dated 04/04/2022. No hydronephrosis noted on ultrasound. Left kidney noted to be atrophic. 2. Chronic kidney disease stage IIIa with creatinine in the range of 1.1-1.3 in July 2018 and September 2019. Etiology is nephrosclerosis and atrophic left kidney. 3. Hypertension with chronic kidney disease. 4. Urinary retention. Fisher catheter removed. 5. Status post fall with T3 vertebral fracture. Plan: Encourage oral intake. Continue to hold losartan. Patient unable to tolerate amlodipine due to edema. Hold hydralazine for systolic blood pressure less than 125. Avoid nephrotoxins. Continue to monitor renal function and urine output. Follow-up outpatient in 1-2 weeks postdischarge.
--- NOTE | 2022-04-07 21:00 | P.DS ---
Providers Date of admission: 03/30/22 18:55 Attending physician: Nitin Joe Consults: 03/30/22 18:54 Consult Physician Urgent Consulting Provider: Harry Otto Consult Reason/Comments: t3 fx Do you want consulting provider notified?: Already Contacted 04/01/22 08:38 Consult Physician Urgent Consulting Provider: Galen Brown Consult Reason/Comments: david Do you want consulting provider notified?: Yes 04/02/22 10:10 Consult Physician Urgent Consulting Provider: Lavell Lopez Consult Reason/Comments: IPR/ t3 fracture Do you want consulting provider notified?: Yes Primary care physician: [facility] Hospital Course: 1. Mechanical fall/debility; patient does have history of osteoarthritis and osteoporosis; subacute rehab is recommended, as her insurance declined, patient is able to walk using her walker 2. Fracture T3 vertebra; patient does have history of previous T5 compression fracture likely related to history of osteoporosis. Orthopedic team signed off the case. TLSO brace at bedside 3. Acute kidney injury, Improved 4. Asthma; not in exacerbation; 5. History of osteoarthritis; 6. Gastroesophageal reflux disease; 7. Depression/anxiety; 8. Hypertension; Hospital course: 87-year-old female, history of hypertension, asthma, osteoarthritis, CVA/TIA, presenting to the emergency department at [facility] after fall and back pain. Patient was seen at [facility] and workup revealed a T3 fracture; patient was transferred to our facility for higher level of care. Patient found to have compression of fractureT3, she was complaining of from [id number] back pain, orthopedic team evaluated the patient, no surgical intervention required recommended however TLSO brace was ordered, was at bedside, however patient for just use it at times, and patient instructed several times and written instruction also provided for her diffuse the brace 1 when ever she is out of bed or sitting up at 90 Her acute kidney injury improved after we stopped her low Zartan. Hydralazine was added. Blood pressure controlled Subacute rehab recommended for the patient but her insurance declined rehab stay therefore patient discharged home with home health care Of note I saw the patient over 2 days using her own walker and awoken by herself however she was complaining from back pain because she was not using the brace patient was counseled extensively to use the brace and she agrees now. On the day of discharge she denies any other symptoms, no chest pain or dyspnea. Known new GI or urinary symptoms, no confusion or weakness or numbness Patient was cleared for discharge by mold shaker and orthopedic team Patient denies any other new symptoms. Problems and management plan were discussed with the patient and he verbalized u nderstanding and acceptance Patient was found stable and can be discharged home in guarded prognosis however he needs follow-up as an outpatient. Patient was instructed to follow up with PCP Dr. garcia within one week and patient agrees Patient was instructed to follow up with orthopedic team Dr. Otto and once 2 weeks and mold shaker Kevin and went 2 weeks and she agrees Physical exam Gen: patient is a AAOx3, no distress CVS: S1-S2, RRR, no murmur Lungs: B/L CTA, no wheezing Abdomen: soft, no distention, no tenderness, positive bowel sounds Extremity: no leg edema or induration Time spent more than 35 minutes Plan - Discharge Summary Discharge Rx Participant: No New Discharge Prescriptions: New hydrALAZINE HCL [Apresoline] 50 mg PO TID #90 tab Lidocaine 5% Patch [Lidoderm 5% Patch] 1 patch TOPICAL DAILY #7 patch Acetaminophen Tab [Tylenol] 650 mg PO Q6HR PRN tab PRN Reason: Mild Pain Or Fever > 100.5 Continue Citalopram Hydrobromide [CeleXA] 10 mg PO DAILY Vit C/E/Zn/Coppr/Lutein/Zeaxan [Preservision Areds 2 Softgel] 1 cap PO BID Atorvastatin [Lipitor] 20 mg PO HS Diphenoxylate HCl/Atropine [Lomotil 2.5-0.025 mg Tablet] 1 tab PO BID PRN PRN Reason: Diarrhea predniSONE 5 mg PO DAILY Metoprolol Succinate (ER) [Toprol XL] 25 mg PO DAILY Multivitamin W/Calcium 1 tab PO DAILY Gabapentin [Neurontin] 100 mg PO TID Discontinued ALPRAZolam [Xanax] 0.25 mg PO HS amLODIPine [Norvasc] 10 mg PO DAILY Losartan Potassium 100 mg PO DAILY Furosemide [Lasix] 40 mg PO DAILY Discharge Medication List Citalopram Hydrobromide [CeleXA] 10 mg PO DAILY 09/10/16 [History] Vit C/E/Zn/Coppr/Lutein/Zeaxan [Preservision Areds 2 Softgel] 1 cap PO BID 12/20/17 [History] Atorvastatin [Lipitor] 20 mg PO HS 07/25/18 [History] Diphenoxylate HCl/Atropine [Lomotil 2.5-0.025 mg Tablet] 1 tab PO BID PRN 03/30/22 [History] Gabapentin [Neurontin] 100 mg PO TID 03/30/22 [History] Metoprolol Succinate (ER) [Toprol XL] 25 mg PO DAILY 03/30/22 [History] Multivitamin W/Calcium 1 tab PO DAILY 03/30/22 [History] predniSONE 5 mg PO DAILY 03/30/22 [History] Acetaminophen Tab [Tylenol] 650 mg PO Q6HR PRN tab 04/07/22 [Rx] Lidocaine 5% Patch [Lidoderm 5% Patch] 1 patch TOPICAL DAILY #7 patch 04/07/22 [ Rx] hydrALAZINE HCL [Apresoline] 50 mg PO TID #90 tab 04/07/22 [Rx] Follow up Appointment(s)/Referral(s): Ward Garcia MD [Primary Care Provider] - 04/13/22 10:00 am (With Renetta) Melody Ortega NPC [Nurse Practitioner] - As Needed (Patient has an appointment with our office, if she needs to be seen sooner she may call and reschedule.) Harry Otto DO [Doctor of Osteopathic Medicine] - 04/21/22 11:10 am Galen Brown DO [STAFF PHYSICIAN] - 05/03/22 2:00 pm [facility] Visiting Nurse, [NON-STAFF] - As Needed Pari Keane [NON-STAFF] - As Needed (Supplier of TLSO Brace) Patient Instructions/Handouts: Vertebral Compression Fracture (DC) Activity/Diet/Wound Care/Special Instructions: Heart healthy diet Activity is restricted till you see your doctors we recommend to keep using the spine brace (TSLO brace) whenever your up in bed eg sitting at 90 or whenever you are working. Discharge Disposition: HOME WITH HOME HEALTH SERVICES
--- NOTE | 2022-04-09 23:13 | CDI ---
Documentation Clarification Form Date: 04/09/2022 10:51:55 PM From: Karen Love Phone: Admit Date: 03/30/2022 6:55:00 PM Patient Name: Susy Dee Visit Number: [id number] Discharge Date: 04/07/2022 2:06:00 PM ATTENTION: The Clinical Documentation Specialists (CDI) and [facility] Coding Staff appreciate your assistance in clarifying documentation. Please respond to the clarification below the line at the bottom and electronically sign. The CDI & [facility] Coding staff will review the response and follow-up if needed. Please note: Queries are made part of the Legal Health Record. If you have any questions, please contact the author of this message via ITS. Dr. Melendez E Sheet T3 Fracture is documented per ED Note and patient is noted to have rent fall and osteoporosis. Please clarify if there is a relationship between the diagnoses. History/Risk Factors: 87yo F, Osteoporosis w Hx T5 Fx, T3 Fracture, recent fall, HTN, CKDIII, OA, CAD, ELIDA Clinical Indicators: Fall from standing; fractureT3; compressionof fractureT3 Treatment: no surgical intervention required recommended however TLSO brace was ordered, was at bedside, however patient for just use it at times, and patient instructed several times and written instruction also provided for her diffuse the brace 1 whenever she is out of bed or sitting up at 90. Please clarify the relationship, if any, which is clinically appropriate for this patient: [ ] T3 Fracture is due to fall from standing [ ] T3 Fracture is due to Osteoporosis [ ] Other explanation of T3 Fracture (please specify) [ ] Unable to determine (no explanation for clinical findings) (Template Last Revised: May 2020) T3 Fracture is due to Osteoporosis MTDD
== END 2022-04-07 14:06 | disposition home health service (06) | DRG 542 ==
LOC: EC 17:41 → 5NMEDONC 18:55 → 1SOBS 03-31 09:29 → 4SSUR 04-01 19:28
PROVIDERS: ADMIT Hospitalist; ATTEND Hospitalist
DX: M80.88XA Other osteoporosis with current pathological fracture, vertebra(e), initial encounter for fracture (principal); N17.0 Acute kidney failure with tubular necrosis; I13.10 Hypertensive heart and chronic kidney disease without heart failure, with stage 1 through stage 4 chronic kidney disease, or unspecified chronic kidney disease; N18.31 Chronic kidney disease, stage 3a; F32.A Depression, unspecified; J45.909 Unspecified asthma, uncomplicated; M54.14 Radiculopathy, thoracic region; R26.2 Difficulty in walking, not elsewhere classified; F41.9 Anxiety disorder, unspecified; M19.90 Unspecified osteoarthritis, unspecified site; M54.50 Low back pain, unspecified; G89.29 Other chronic pain; I25.10 Atherosclerotic heart disease of native coronary artery without angina pectoris; K21.9 Gastro-esophageal reflux disease without esophagitis; R33.8 Other retention of urine; T46.5X5A Adverse effect of other antihypertensive drugs, initial encounter; R53.81 Other malaise; Z96.0 Presence of urogenital implants; Z96.652 Presence of left artificial knee joint; W18.30XA Fall on same level, unspecified, initial encounter; Z96.642 Presence of left artificial hip joint; Z79.899 Other long term (current) drug therapy; Z79.82 Long term (current) use of aspirin; Z79.51 Long term (current) use of inhaled steroids; Z91.048 Other nonmedicinal substance allergy status; Z86.73 Personal history of transient ischemic attack (TIA), and cerebral infarction without residual deficits; Z87.891 Personal history of nicotine dependence; Z79.52 Long term (current) use of systemic steroids; Z79.891 Long term (current) use of opiate analgesic; Z88.5 Allergy status to narcotic agent
CPT/HCPCS: 71045; 76770; 80048; 80053; 81001; 83735; 85025; 87086; 94760; 96374; 96376; 99285

== ENCOUNTER → 2022-07-20 | Outpatient (CLI) | payer MEDICARE ==
[2022-07-20 14:55] LABS: Appearance,Urine Clear (Clear); Bacteria,Urine Rare /hpf; Bilirubin,Urine Negative (Negative); Blood,Urine Negative (Negative); Color,Urine Yellow; Glucose,Urine (UA) Negative (Negative); Ketones,Urine Negative (Negative); Leukocyte Esterase,Urine Small (Negative); Mucus,Urine Rare /hpf; Nitrite,Urine Negative (Negative); Protein,Urine 1+ (Negative); RBC,Urine 3 /hpf (0-5); Specific Gravity,Urine 1.014 (1.001-1.035); Squamous Epithelial Cell,Urine 1 /hpf (0-4); Urobilinogen,Urine <2.0 mg/dL (<2.0); WBC,Urine 2 /hpf (0-5)
[2022-07-20 20:11] LABS: HCT 42.7 % (37.2-46.3); HGB 13.1 g/dL (12.0-15.0); MCH 29.2 pg (27.0-32.0); MCHC 30.7 g/dL (32.0-37.0); MCV 95.3 fL (80.0-97.0); Mean Platelet Volume 10.1 fL (9.5-12.2); NRBC Per 100 WBC 0 /100 WBCS (0.0-0.0); Platelet Count 330 X 10*3/uL (140-440); RBC 4.48 X 10*6/uL (4.10-5.20); RDW 15.3 % (11.5-14.5); WBC 16.97 X 10*3/uL (4.50-10.00)
[2022-07-20 20:30] LABS: ALT 22 U/L (8-44); AST 27 U/L (13-35); African American GFR (CKD) 33.8 (60.0-200.0); Albumin 4.8 g/dL (3.8-4.9); Albumin/Globulin Ratio 1.98 (1.60-3.17); Alkaline Phosphatase 56 U/L (41-126); BUN/Creat Ratio 25.26 Ratio (12.00-20.00); Blood Urea Nitrogen 39.4 mg/dL (9.0-27.0); Calcium 10.3 mg/dL (8.7-10.3); Carbon Dioxide 22.1 mmol/L (20.0-27.5); Chloride 100 mmol/L (96-109); Globulin 2.4 g/dL (1.6-3.3); Glucose 109 mg/dL (70-110); Magnesium 2.2 mg/dL (1.5-2.4); Non-African American GFR(CKD) 29.2 (60.0-200.0); Potassium 5.3 mmol/L (3.5-5.5); Sodium 138 mmol/L (135-145); Total Protein 7.2 g/dL (6.2-8.2)
== END | disposition home or self-care (01) ==
LOC: LABWHC1 13:19
PROVIDERS: ATTEND Internal Medicine Clinical Cardiac Electrophysiology
DX: I10 Essential (primary) hypertension (principal); I49.5 Sick sinus syndrome; R30.0 Dysuria; R00.0 Tachycardia, unspecified
CPT/HCPCS: 36415; 80053; 81001; 83735; 84443; 85027

== ENCOUNTER → 2022-12-06 | Outpatient (CLI) | payer MEDICARE ==
[~2022-12-06] MED LIST changes: +DENOSUMAB 60 MG/ML 1 ML SYRINGE SQ ONE
[2022-12-06 13:46] VITALS: BP 158/74; PULSE 63; RESP 16; TEMP 97.4
== END ==
LOC: PROCWHC3 13:30
PROVIDERS: ATTEND Internal Medicine Geriatric Medicine
DX: M81.0 Age-related osteoporosis without current pathological fracture (principal)
CPT/HCPCS: 96372; J0897